=== PATIENT | female | born 1985 | race Caucasian/White ===

== ENCOUNTER 2017-04-25 05:39 | Emergency (ER) | payer BC ==
--- NOTE | 2017-04-25 06:21 | ERPHSYRPT ---
- History of Present Illness Historian: patient, family Exam Limitations: no limitations Patient Subjective Stated Complaint: Pt here with dry cough, sts abd and back hurting from cough, started having abd cramping yesterday. Pt is 6 weeks . Woke up this morning and had bright red bleeding that is now darker in nature. Reports as spotting - not needing to wear a pad. Reports abd discomfort at present, rates at 2/10. Describes as "stomach churning feeling". Pt is G4 P 1 Triage Nursing Assessment: Pt alert, oriented, answers all questions appropriately. Skin pink, warm, dry, resps non-labored. Pt ambulatory to tx room , steady gait noted. Dry cough noted. Timing/Duration: today Activities at Onset: other (coughing) Quality: aching, pressure Abdominal Pain Onset Location: other Pain Radiation: groin, back Severity of Pain-Max: moderate Severity of Pain-Current: moderate Modifying Factors: Improves With: coughing Associated Symptoms: back, nausea Previous symptoms: no prior history Hx Tetanus, Diphtheria Vaccination/Date Given: No Hx Influenza Vaccination/Date Given: No Hx Pneumococcal Vaccination/Date Given: No <ANAT SILVA - Last Filed: 04/25/17 07:04> <CLOVIS MONTALVO - Last Filed: 04/25/17 08:05> - History of Present Illness Time Seen by Provider: 04/25/17 06:16 Physician History: 32 year old with history of miscarriages and recently diagnosed with was coughing today and developed mild bleeding and pain - now tender midline pelvis and right adnexa with nausea; (ANAT SILVA) Allergies/Adverse Reactions: cocoa butter Allergy (Verified 04/25/17 05:53) codeine [Codeine] Allergy (Verified 04/25/17 05:53) penicillin G Allergy (Verified 04/25/17 05:53) red dye Allergy (Verified 04/25/17 05:53) strawberry [[place]] Allergy (Verified 04/25/17 05:53) cyclobenzaprine HCl [From Flexeril] Adverse Reaction (Severe, Verified 04/25/17 05:53) Home Medications: Vits W-Ca,Fe,FA(<1Mg) [] 1 each PO DAILY 04/25/17 [History] - Review of Systems Constitutional: No Fever, No Chills Eyes: No Symptoms Ears, Nose, & Throat: Nose Congestion Respiratory: Cough, No Dyspnea Cardiac: No Chest Pain, No Edema, No Syncope Abdominal/Gastrointestinal: Abdominal Pain, Nausea, No Vomiting, No Diarrhea Genitourinary Symptoms: , Vaginal Bleeding, No Dysuria Musculoskeletal: No Back Pain, No Neck Pain Skin: No Rash Neurological: No Dizziness, No Focal Weakness, No Sensory Changes Psychological: No Symptoms Endocrine: No Symptoms Hematologic/Lymphatic: No Symptoms Immunological/Allergic: No Symptoms All Other Systems: Reviewed and Negative <ANAT SILVA - Last Filed: 04/25/17 07:04> - Past Medical History Pertinent Past Medical History: Yes Neurological History: No Pertinent History ENT History: No Pertinent History Cardiac History: No Pertinent History Respiratory History: No Pertinent History Endocrine Medical History: No Pertinent History Musculoskeletal History: Other GI Medical History: No Pertinent History History: No Pertinent History Psycho-Social History: Depression Female Reproductive Disorders: No Pertinent History Other Medical History: LUMBAR SPINE, b12 defiency and anemia - Past Surgical History Past Surgical History: Yes Gastrointestinal: Cholecystectomy Musculoskeletal: Orthopedic Surgery, Other Female Surgical History: Section Other Surgical History: Back Surgery - Social History Smoking Status: Never smoker How long have you smoked: 5 Exposure to second hand smoke: No Drug Use: none Patient Lives Alone: No - Female History Hx Last Menstrual Period: 03/09/17 Hx Now: Yes Expected Date of Delivery: 12/14/17 <ANAT SILVA - Last Filed: 04/25/17 07:04> - Physical Exam General Appearance: no apparent distress, alert Eye Exam: PERRL/EOMI, eyes nml inspection Ears, Nose, Throat Exam: normal ENT inspection, pharynx normal, moist mucous membranes Neck Exam: normal inspection, non-tender, supple, full range of motion Respiratory Exam: normal breath sounds, lungs clear, No respiratory distress Cardiovascular Exam: regular rate/rhythm, normal heart sounds Gastrointestinal/Abdomen Exam: soft, tenderness (right adnexa and uterus), No mass Pelvic Exam: normal external exam, adnexal tenderness, vaginal bleeding, uterine tenderness, other (mild bleeding at cervical os without visible POC or dilation), No cervical motion tenderness, No vaginal discharge Rectal Exam: deferred Back Exam: normal inspection, normal range of motion, No CVA tenderness, No vertebral tenderness Extremity Exam: normal inspection, normal range of motion, pelvis stable Neurologic Exam: alert, oriented x 3, cooperative, normal mood/affect, nml cerebellar function, sensation nml, No motor deficits Skin Exam: normal color, warm, dry SpO2: 95 <ANAT SILVA - Last Filed: 04/25/17 07:04> - Nursing Vital Signs Nursing Vital Signs: Initial Vital Signs Temperature 98.1 F 04/25/17 05:47 Pulse Rate 97 H 04/25/17 05:47 Respiratory Rate 18 04/25/17 05:47 Blood Pressure 113/70 04/25/17 05:47 O2 Sat by Pulse Oximetry 95 04/25/17 05:47 Pain Scale Pain Intensity 0 - Course Nursing assessment & vital signs reviewed: Yes <ANAT SILVA - Last Filed: 04/25/17 07:04> - Radiology Ultrasound Exam OB Ultrasound: Other (discussed with geospatial technologist: interuterine 6 week 1 day heart rate 1 18 bpm) <CLOVIS MONTALVO - Last Filed: 04/25/17 08:05> Ordered Tests: Active Orders 24 hr Category Date Time Status Clean Catch Urine Specimen STAT Care 04/25/17 06:23 Active IV Insertion STAT Care 04/25/17 06:23 Active Pelvic Exam Assist STAT Care 04/25/17 06:23 Active OB TRANSVAGINAL [US] Stat Exams 04/25/17 06:26 Ordered CBC W DIFF Stat Lab 04/25/17 06:55 Completed CMP Stat Lab 04/25/17 06:55 Completed CULTURE, THROAT Stat Lab 04/25/17 06:55 Received CULTURE,URINE Stat Lab 04/25/17 06:55 Received HCG, Quantitative (Inhouse) Stat Lab 04/25/17 06:55 Completed LIPASE Stat Lab 04/25/17 06:55 Completed Lactic Acid Stat Lab 04/25/17 06:23 Completed STREP SCREEN-BETA A Stat Lab 04/25/17 06:55 Completed UA W/ MICROSCOPIC Stat Lab 04/25/17 06:55 Completed Medication Summary Discontinued Medications Generic Name Dose Route Start Last Admin Trade Name Freq PRN Reason Stop Dose Admin Sodium Chloride 1,000 mls @ 999 mls/hr 04/25/17 06:23 04/25/17 07:01 Sodium Chloride 0.9% 1000 Ml IV 04/25/17 07:23 999 mls/hr .Q1H1M STA Administration Sodium Chloride Confirm 04/25/17 07:00 Sodium Chloride 0.9% 1000 Ml Administered 04/25/17 07:01 Dose 1,000 mls @ ud .ROUTE .STK-MED ONE Lab/Rad Data: Laboratory Result Diagrams 04/25/17 06:55 04/25/17 06:55 Laboratory Results 04/25/17 04/25/17 04/25/17 Range/Units 06:55 06:55 06:55 WBC (4.0-10.5) K/mm3 RBC (4.1-5.4) M/mm3 Hgb (12.0-16.0) gm/dl Hct (35-47) % MCV (78-100) fl MCH (26-32) pg MCHC (32-36) g/dl RDW (11.5-14.0) % Plt Count (150-450) K/mm3 MPV (6-9.5) fl Gran % (36.0-66.0) % Lymphocytes % (24.0-44.0) % Monocytes % (0.0-12.0) % Eosinophils % (0.00-5.0) % Basophils % (0.0-0.4) % Basophils # (0-0.4) Sodium (136-145) mEq/L Potassium (3.5-5.1) mEq/L Chloride (98-107) mEq/L Carbon Dioxide (21-32) mEq/L Anion Gap (5-15) MEQ/L BUN (9-20) mg/dL Creatinine (0.55-1.30) mg/dl Estimated GFR ML/MIN Glucose (70-110) MG/DL Lactic Acid (0.4-2.0) Calcium (8.5-10.1) mg/dL Total Bilirubin (0.2-1.0) mg/dL AST (15-37) U/L ALT (12-78) U/L Alkaline Phosphatase (46-116) U/L Serum Total Protein (6.4-8.2) gm/dL Albumin (3.4-5.0) g/dL Lipase (73-393) U/L Beta HCG, Quant 06985 H (0-6) IU/L Ur Collection Type VOID Urine Color YELLOW (YELLOW) Urine Appearance CLEAR (CLEAR) Urine pH 6.0 (5-6) Ur Specific [place] 1.010 (1.005-1.025) Urine Protein TRACE (Negative) Urine Ketones NEGATIVE (NEGATIVE) Urine Blood 50 (0-5) Russ/ul Urine Nitrite NEGATIVE (NEGATIVE) Urine Bilirubin NEGATIVE (NEGATIVE) Urine Urobilinogen NORMAL (0-1) mg/dL Ur Leukocyte Esterase TRACE (NEGATIVE) Urine Microscopic RBC 0-2 (0-2) /HPF Urine Microscopic WBC 5-10 (0-5) /HPF Ur Epithelial Cells FEW (FEW) /HPF Urine Bacteria FEW (NEGATIVE) /HPF Urine Culture Reflexed YES (NO) Urine Glucose NEGATIVE (NEGATIVE) mg/dL Streptococcus Screen NEGATIVE (Negative) Specimen Received 04/25/17 0650 ABO Group Rh Factor Antibody Screen (NEGATIVE) 04/25/17 04/25/17 04/25/17 Range/Units 06:55 06:55 06:55 WBC 6.3 (4.0-10.5) K/mm3 RBC 4.35 (4.1-5.4) M/mm3 Hgb 13.4 (12.0-16.0) gm/dl Hct 40.0 (35-47) % MCV 92.0 (78-100) fl MCH 30.8 (26-32) pg MCHC 33.5 (32-36) g/dl RDW 12.9 (11.5-14.0) % Plt Count 290 (150-450) K/mm3 MPV 9.7 H (6-9.5) fl Gran % 54.8 (36.0-66.0) % Lymphocytes % 28.4 (24.0-44.0) % Monocytes % 14.6 H (0.0-12.0) % Eosinophils % 1.9 (0.00-5.0) % Basophils % 0.3 (0.0-0.4) % Basophils # 0.02 (0-0.4) Sodium 136 (136-145) mEq/L Potassium 3.5 (3.5-5.1) mEq/L Chloride 102 (98-107) mEq/L Carbon Dioxide 23.6 (21-32) mEq/L Anion Gap 13.8 (5-15) MEQ/L BUN 4 L (9-20) mg/dL Creatinine 0.83 (0.55-1.30) mg/dl Estimated GFR > 60 ML/MIN Glucose 89 (70-110) MG/DL Lactic Acid (0.4-2.0) Calcium 8.9 (8.5-10.1) mg/dL Total Bilirubin 0.30 (0.2-1.0) mg/dL AST 23 (15-37) U/L ALT 26 (12-78) U/L Alkaline Phosphatase 57 (46-116) U/L Serum Total Protein 7.3 (6.4-8.2) gm/dL Albumin 3.4 (3.4-5.0) g/dL Lipase 86 (73-393) U/L Beta HCG, Quant (0-6) IU/L Ur Collection Type Urine Color (YELLOW) Urine Appearance (CLEAR) Urine pH (5-6) Ur Specific [place] (1.005-1.025) Urine Protein (Negative) Urine Ketones (NEGATIVE) Urine Blood (0-5) Russ/ul Urine Nitrite (NEGATIVE) Urine Bilirubin (NEGATIVE) Urine Urobilinogen (0-1) mg/dL Ur Leukocyte Esterase (NEGATIVE) Urine Microscopic RBC (0-2) /HPF Urine Microscopic WBC (0-5) /HPF Ur Epithelial Cells (FEW) /HPF Urine Bacteria (NEGATIVE) /HPF Urine Culture Reflexed (NO) Urine Glucose (NEGATIVE) mg/dL Streptococcus Screen (Negative) Specimen Received ABO Group A Rh Factor POSITIVE Antibody Screen NEGATIVE (NEGATIVE) 04/25/17 Range/Units 06:23 WBC (4.0-10.5) K/mm3 RBC (4.1-5.4) M/mm3 Hgb (12.0-16.0) gm/dl Hct (35-47) % MCV (78-100) fl MCH (26-32) pg MCHC (32-36) g/dl RDW (11.5-14.0) % Plt Count (150-450) K/mm3 MPV (6-9.5) fl Gran % (36.0-66.0) % Lymphocytes % (24.0-44.0) % Monocytes % (0.0-12.0) % Eosinophils % (0.00-5.0) % Basophils % (0.0-0.4) % Basophils # (0-0.4) Sodium (136-145) mEq/L Potassium (3.5-5.1) mEq/L Chloride (98-107) mEq/L Carbon Dioxide (21-32) mEq/L Anion Gap (5-15) MEQ/L BUN (9-20) mg/dL Creatinine (0.55-1.30) mg/dl Estimated GFR ML/MIN Glucose (70-110) MG/DL Lactic Acid 0.9 (0.4-2.0) Calcium (8.5-10.1) mg/dL Total Bilirubin (0.2-1.0) mg/dL AST (15-37) U/L ALT (12-78) U/L Alkaline Phosphatase (46-116) U/L Serum Total Protein (6.4-8.2) gm/dL Albumin (3.4-5.0) g/dL Lipase (73-393) U/L Beta HCG, Quant (0-6) IU/L Ur Collection Type Urine Color (YELLOW) Urine Appearance (CLEAR) Urine pH (5-6) Ur Specific [place] (1.005-1.025) Urine Protein (Negative) Urine Ketones (NEGATIVE) Urine Blood (0-5) Russ/ul Urine Nitrite (NEGATIVE) Urine Bilirubin (NEGATIVE) Urine Urobilinogen (0-1) mg/dL Ur Leukocyte Esterase (NEGATIVE) Urine Microscopic RBC (0-2) /HPF Urine Microscopic WBC (0-5) /HPF Ur Epithelial Cells (FEW) /HPF Urine Bacteria (NEGATIVE) /HPF Urine Culture Reflexed (NO) Urine Glucose (NEGATIVE) mg/dL Streptococcus Screen (Negative) Specimen Received ABO Group Rh Factor Antibody Screen (NEGATIVE) - Progress Progress: improved, re-examined Counseled pt/family regarding: lab results, diagnosis, need for follow-up, rad results <ANAT SILVA - Last Filed: 04/25/17 07:04> - Progress Progress: improved <CLOVIS MONTALVO - Last Filed: 04/25/17 08:05> - Progress Progress Note: 04/25/17 06:44 pt handed off to Dr[address] Montalvo at change of shift after introduction, discussion of pending labs, imaging , differential, for final interpretation and disposition. (ANAT SILVA) 04/25/17 07:58 32-year-old white female 4 para 1021 Who states that she is 6 weeks , woke up this morning with bright red bleeding from her vaginal area She states that she has had a cough nonproductive for 2 days some nausea. Patient initially seen by Dr. Silva patient given IV normal saline patient has a ultrasound which is a remarkable for intrauterine 6 weeks 1 day heart rate 118 no other abnormalities patient's quantitative hCG 26,683 patient' s blood type a positive urine shows 5-10 white cells but negative nitrites chemistry is normal lactate is normal CBC shows a white count 6.3 hemoglobin 13.4 hematocrit 40 Patient currently with no low complaints she has an occasional cough no fevers Physical examination well-developed well-nourished white female alert oriented 3. Head is atraumatic normocephalic. Eyes PERRLA EOMI fundi are unremarkable. Ears TMs sage intact bilaterally. Nose is clear. Throat is clear. Neck is supple. Lungs are clear. Heart regular rate and rhythm without murmur. Abdomen soft nontender nondistended positive bowel sounds. Extremities full range of motion pulse equal symmetrical 2 over 4. Neuro cranial nerves II through XII are intact each are symmetrical 2 over 4 Beemer Coma Scale 15. Pelvic examination done by Dr. Silva. Impression vaginal bleeding. Intrauterine 6 weeks 1 day estimated gestational age. URI. Plan home. Plenty of fluids. Tylenol as needed for pain. Plain Robitussin as needed (OTC) consult pharmacist for safe cough medicines for . Follow-up with your family doctor. Nothing in vagina. (CLOVIS MONTALVO) <ANAT SILVA - Last Filed: 04/25/17 07:04> - Departure Time of Disposition: 08:03 Departure Disposition: Home Critical Care Time: No <CLOVIS MONTALVO - Last Filed: 04/25/17 08:05> - Departure Clinical Impression: Vaginal bleeding affecting early , Intrauterine URI (upper respiratory infection) Qualifiers: URI type: unspecified URI Qualified Code(s): J06.9 - Acute upper respiratory infection, unspecified Condition: Fair Referrals: SILVINA NEGRON MD [Primary Care Provider] - Additional Instructions: Return home. Plenty of fluids. Tylenol every 4 hours as needed for pain. Plain Robitussin as needed (consult pharmacist for safe cough remedies during ) Nothing in your vagina Follow-up with your family doctor or [facility] physician. Return for acute distress or for severe symptoms.
[2017-04-25] MEDS ORDERED: Sodium Chloride 0.9% 1000 ML 1,000 ML IV STA (06:23)
[2017-04-25 06:55] LABS: BASOPHIL % 0.3 % (0.0-0.4); Eosinophil % 1.9 % (0.00-5.0); Granulocytes % 54.8 % (36.0-66.0); Lymphocytes % 28.4 % (24.0-44.0); Mean Corpuscular Hemoglobin 30.8 pg (26-32); Mean Platelet Volume 9.7 fl (6-9.5); Monocytes % 14.6 % (0.0-12.0); Platelet Count 290 K/mm3 (150-450); Red Blood Count 4.35 M/mm3 (4.1-5.4); Red Cell Distribution Width 12.9 % (11.5-14.0); White Blood Count 6.3 K/mm3 (4.0-10.5)
[2017-04-25 06:59] VITALS: PULSE 78
[2017-04-25] MEDS ORDERED: Sodium Chloride 0.9% 1000 ML 1,000 ML ONE (07:00)
[2017-04-25 07:18] LABS: Collection Type VOID
[2017-04-25 07:19] LABS: ADD URINE CULTURE? YES (NO); Bacteria FEW /HPF (NEGATIVE); Bilirubin NEGATIVE (NEGATIVE); Blood 50 Ery/ul (0-5); COMPLETE URINE MICROSCOPIC? YES; Epithelial Cells FEW /HPF (FEW); Glucose NEGATIVE (NEGATIVE); Leukocyte Esterase TRACE (NEGATIVE)
[2017-04-25 07:22] LABS: ALBUMIN 3.4 g/dL (3.4-5.0); ALKALINE PHOSPHATASE 57 U/L (46-116); ANION GAP 13.8 MEQ/L (5-15); BLOOD UREA NITROGEN 4 mg/dL (9-20); CHLORIDE 102 mEq/L (98-107); Carbon Dioxide 23.6 mEq/L (21-32); Glucose 89 MG/DL (70-110); LIPASE 86 U/L (73-393); Potassium 3.5 mEq/L (3.5-5.1); SGOT/AST 23 U/L (15-37); SGPT/ALT 26 U/L (12-78); SODIUM 136 mEq/L (136-145); Total Protein 7.3 gm/dL (6.4-8.2)
[2017-04-25 08:19] VITALS: BP 108/72; O2SAT 98
--- NOTE | 2017-04-25 08:33 | XRAY ---
Indication: Spotting. Two-dimensional transvaginal early OB ultrasound performed. Comparison: None for this . Uterus is anteverted with a single intrauterine gestational sac, yolk sac, and pole. The mean crown-rump length measures 0.41 cm corresponding to 6 weeks 1 day. heart rate 118 BPM. No abnormal subchorionic fluid collection. Left ovary measures 3.0 x 2.5 x 4.2 cm with a 1.5 cm corpus luteal cyst. Right ovary measures 2.6 x 2.6 x 3.1 cm and unremarkable. No suspicious adnexal mass or free fluid. Impression: Single viable intrauterine uterine measuring 6 weeks 1 day. Expected date confinement is December 18, 2017. Nothing acute. Comment: Preliminary report was given.
== END 2017-04-25 08:22 | disposition home or self-care (01) ==
LOC: ED 05:39
DX: O20.9 Hemorrhage in early pregnancy, unspecified (principal); Z3A.01 Less than 8 weeks gestation of pregnancy; J06.9 Acute upper respiratory infection, unspecified
CPT/HCPCS: 36000; 36415; 76817; 80053; 81000; 83605; 83690; 84702; 85025; 86850; 86900; 86901; 87070; 87086; 87430; 87631; 96360; 99284

== ENCOUNTER 2017-10-13 17:40 | Observation (INO) | payer BC, MEDICAID ==
[2017-10-13] MEDS ORDERED: Lactated Ringers 1,000 ML IV ONE ×2 (18:17→20:09)
[2017-10-13] MEDS ORDERED: BRETHINE 1 MG/ML SQ ONE (18:17)
[2017-10-13 18:56] VITALS: O2SAT 94
[2017-10-13 19:07] LABS: Appearance CLEAR (CLEAR); Bilirubin NEGATIVE (NEGATIVE); Blood NEGATIVE Ery/ul (0-5); Glucose NEGATIVE (NEGATIVE); Ketones NEGATIVE (NEGATIVE); Leukocyte Esterase NEGATIVE (NEGATIVE); Nitrite NEGATIVE (NEGATIVE); Protein,Urine Dip NEGATIVE (Negative); Specific Gravity 1.015 (1.005-1.025); Urobilinogen NORMAL mg/dL (0-1)
[2017-10-13] MEDS ORDERED: PROCARDIA 10 MG PO ONE (20:09)
[2017-10-13] MEDS ORDERED: Celestone Soluspan 6MG/ML IM ONE (22:14)
[2017-10-13] MEDS: Lactated Ringers 1,000 ML IV SCH (22:23)
[2017-10-13] MEDS: PROCARDIA 10 MG PO SCH (23:59)
[2017-10-14] MEDS: PROCARDIA 10 MG PO SCH ×3 (04:07→12:42)
[2017-10-14] MEDS: Lactated Ringers 1,000 ML IV SCH (05:01)
--- NOTE | 2017-10-14 09:13 | PCM.SSS ---
History of Present Illness - Chief Complaint History of Present Illness: is a 32 year old female 31+ weeks EGA with history of previous delivery at 31 weeks. she arrived complaining of contractions, she has improved with terbutaline and po procardia, still having some occaisonal ctx but improved and no pain. having severe GERD symptoms with vomiting. - Review of Systems Constitutional: No Fever, No Chills Respiratory: No Symptoms Cardiac: No Chest Pain, No Edema, No Syncope Abdominal/Gastrointestinal: Nausea, Vomiting Genitourinary Symptoms: No Dysuria Skin: No Rash All Other Systems: Reviewed and Negative Medications & Allergies Home Medications: Home Medication List Vits W-Ca,Fe,FA(<1Mg) [] 1 each PO DAILY 04/25/17 [History Confirmed 10/13/17] Nifedipine 10 mg [Procardia 10 mg] 10 mg PO Q4H #120 capsule 10/14/17 [Rx] Ranitidine HCl [Zantac] 150 mg PO BID #60 tablet 10/14/17 [Rx] Allergies/Adverse Reactions: Allergies Allergy/AdvReac Type Severity Reaction Status Date / Time cocoa butter Allergy Verified 04/25/17 05:53 codeine [Codeine] Allergy Verified 04/25/17 05:53 penicillin G Allergy Verified 04/25/17 05:53 red dye Allergy Verified 04/25/17 05:53 strawberry [[place]] Allergy Verified 10/13/17 19:49 cyclobenzaprine HCl AdvReac Severe Verified 04/25/17 05:53 [From Flexeril] - Past Medical History Past Medical History: Yes Neurological History: No Pertinent History ENT History: No Pertinent History Cardiac History: No Pertinent History Respiratory History: No Pertinent History Endocrine Medical History: No Pertinent History Musculoskelatal History: Other GI Medical History: No Pertinent History History: No Pertinent History Pyscho-Social History: Depression Reproductive Disorders: No Pertinent History Comment: LUMBAR SPINE, b12 defiency and anemia - Female History Expected Date of Delivery: 12/14/17 - Past Surgical History Past Surgical History: Yes GI Surgical History: Cholecystectomy Musculskeletal Surgical Hx: Orthopedic Surgery, Other Female Surgical History: Section Other Surgical History: Back Surgery - Social History Smoking Status: Former smoker How long have you smoked: 5 Exposure to second hand smoke: No Alcohol: None Drug Use: none - Physical Exam Vital Signs: Vital Signs - 24 hr Temp Pulse Resp BP Pulse Ox 10/14/17 05:00 98.0 F 82 18 118/68 10/13/17 22:55 98.6 F 90 18 120/72 10/13/17 22:00 18 10/13/17 19:35 18 10/13/17 18:30 98.8 F 96 H 18 120/77 94 L General Appearance: no apparent distress, alert Eye Exam: PERRL/EOMI, eyes nml inspection Respiratory Exam: normal breath sounds, lungs clear, No respiratory distress Cardiovascular Exam: regular rate/rhythm, normal heart sounds, normal peripheral pulses Gastrointestinal/Abdomen Exam: soft, normal bowel sounds, No tenderness, No mass Extremity Exam: normal inspection, normal range of motion, pelvis stable Skin Exam: normal color, warm, dry, No rash Results - Labs Lab/Micro Results: Lab Results-Last 24 Hours 10/13/17 Range/Units 18:19 Ur Collection Type VOID Urine Color YELLOW (YELLOW) Urine Appearance CLEAR (CLEAR) Urine pH 7.0 (5-6) Ur Specific [place] 1.015 (1.005-1.025) Urine Protein NEGATIVE (Negative) Urine Ketones NEGATIVE (NEGATIVE) Urine Blood NEGATIVE (0-5) Russ/ul Urine Nitrite NEGATIVE (NEGATIVE) Urine Bilirubin NEGATIVE (NEGATIVE) Urine Urobilinogen NORMAL (0-1) mg/dL Ur Leukocyte Esterase NEGATIVE (NEGATIVE) Urine Glucose NEGATIVE (NEGATIVE) mg/dL Specimen Received 10/13/17 1840 - Radiology Impressions Radiology Exams & Impressions: Radiology Procedures Category Date Time Status OB >14 WKS 1st GESTATION [US] Stat Exams 10/14/17 Ordered Assessment/Plan (1) contractions Current Visit: Yes Status: Acute Assessment & Plan: improved on po procardia, will get u/s for cervical length Code(s): O47.9 - FALSE LABOR, UNSPECIFIED (2) GERD (gastroesophageal reflux disease) Current Visit: Yes Status: Acute Assessment & Plan: start zantac Code(s): K21.9 - GASTRO-ESOPHAGEAL REFLUX DISEASE WITHOUT ESOPHAGITIS (3) History of delivery Current Visit: Yes Status: Acute Code(s): Z87.51 - PERSONAL HISTORY OF PRE- TERM LABOR Hospital Summary - Vitals & Intake/Output Vital Signs: Vital Signs Temperature 98.0 F 05/31/18 05:00 Pulse Rate 82 10/14/17 05:00 Respiratory Rate 18 10/14/17 05:00 Blood Pressure 118/68 10/14/17 05:00 O2 Sat by Pulse Oximetry 94 L 10/13/17 18:30 Intake & Output: Intake & Output 10/11/17 10/12/17 10/13/17 10/14/17 11:59 11:59 11:59 11:59 Intake Total 4325 Balance 4325 Weight 126.099 kg - Lab Lab Results-Last 24 Hrs: Lab Results-Last 24 Hours 10/13/17 Range/Units 18:19 Ur Collection Type VOID Urine Color YELLOW (YELLOW) Urine Appearance CLEAR (CLEAR) Urine pH 7.0 (5-6) Ur Specific [place] 1.015 (1.005-1.025) Urine Protein NEGATIVE (Negative) Urine Ketones NEGATIVE (NEGATIVE) Urine Blood NEGATIVE (0-5) Russ/ul Urine Nitrite NEGATIVE (NEGATIVE) Urine Bilirubin NEGATIVE (NEGATIVE) Urine Urobilinogen NORMAL (0-1) mg/dL Ur Leukocyte Esterase NEGATIVE (NEGATIVE) Urine Glucose NEGATIVE (NEGATIVE) mg/dL Specimen Received 10/13/17 1840 - Radiology Exams Ordered Rad Exams-Entire Visit: Radiology Procedures Category Date Time Status OB >14 WKS 1st GESTATION [US] Stat Exams 10/14/17 Ordered - Discharge Disposition: Home, Self-Care Condition: Stable Prescriptions: New Nifedipine 10 mg [Procardia 10 mg] 10 mg PO Q4H #120 capsule Ranitidine HCl [Zantac] 150 mg PO BID #60 tablet Continue Vits W-Ca,Fe,FA(<1Mg) [] 1 each PO DAILY Follow up with: SILVINA NEGRON MD [Primary Care Provider] - 1 Week
[2017-10-14] MEDS ORDERED: Pepcid 20 MG PO SCH (10:00)
--- NOTE | 2017-10-14 11:26 | XRAY ---
Exam: OB ultrasound greater than 14 weeks from 10/14/2017. Comparison: OB ultrasound greater than 14 weeks from 07/28/2017. Indication: labor. Findings: A single live intrauterine fetus is seen in the cephalic lie. body motion was seen by the technologist. The heart rate measured 132 bpm. The placenta is anterior and grade one. There is no evidence of placenta previa or abruption. A normal amount of amniotic fluid is seen with an amniotic fluid index of 13.2 cm. The cervical canal length is 2.2 cm which is mildly decreased. I see no fluid within the cervical canal or upper vagina. The cervical canal measured 3.9 cm on the prior exam. Measurements of the biparietal diameter, head circumference, abdominal circumference, and femur length suggest a composite gestational age of 31 weeks 6 days plus or -2 weeks 2 days, which represents satisfactory intrauterine growth since the prior exam from 07/28/2017. Established due date is 12/12/2017. Estimated weight is 1852 g plus or -277.82 g (4 lbs. 1 oz.+ or -10 ounces) placing the fetus in the 47.8 percentile. All size measurement ratios are within normal limits. I see a four-chamber heart, stomach, diaphragm, kidneys, three-vessel umbilical cord, urinary bladder, lips/nose, and spine. No gross abnormality is seen. Impression: 1. 31 weeks 6 days single live intrauterine fetus in the cephalic lie which demonstrates satisfactory interval growth since the prior OB ultrasound exam from 07/28/2017. 2. The placenta is anterior. There is no evidence of placenta previa or abruption. 3. The amount of amniotic fluid appears within normal limits with an amniotic fluid index of 13.2 cm. 4. However, the maternal cervical canal length is mildly decreased at 2.2 cm. I see no abnormal fluid within the maternal cervical canal or upper vagina. Correlate clinically. Maternal cervical canal length on the prior exam was normal at 3.9 cm.
[2017-10-14 11:51] VITALS: PULSE 84
[2017-10-14 14:12] VITALS: BP 115/66
== END 2017-10-14 13:35 | disposition home or self-care (01) ==
LOC: OB 17:40
PROVIDERS: ADMIT Family Medicine; ATTEND Family Medicine
DX: O47.03 False labor before 37 completed weeks of gestation, third trimester (principal); Z87.51 Personal history of pre-term labor
CPT/HCPCS: 76805; 81002; G0378; 96372; J0702; A9270-GY

== ENCOUNTER 2017-10-27 15:46 | Observation (INO) | payer BC, MEDICAID ==
[2013-01-18 01:29] VITALS: BP 143/87
[2017-10-27] MEDS ORDERED: Lactated Ringers 1,000 ML IV ONE ×2 (16:45→19:33)
[2017-10-27] MEDS ORDERED: PROCARDIA 10 MG PO SCH ×2 (16:45→20:45)
[2017-10-27] MEDS ORDERED: BRETHINE 1 MG/ML ONE (19:32)
[2017-10-27] MEDS ORDERED: BRETHINE 1 MG/ML SQ PRN (19:36)
[2017-10-27] MEDS ORDERED: Lactated Ringers 1,000 ML IV SCH (20:00)
[2017-10-27] MEDS ORDERED: PROCARDIA 10 MG ONE (20:34)
[2017-10-28 10:07] VITALS: BP 147/66; PULSE 111
== END 2017-10-27 23:55 | disposition home or self-care (01) ==
LOC: OB 15:46 → UNDOADMOB 15:46 → UNDODISOB 23:55
PROVIDERS: ADMIT Family Medicine; ATTEND Family Medicine
DX: Z34.83 Encounter for supervision of other normal pregnancy, third trimester (principal)
CPT/HCPCS: G0378 ×2; A9270-GY

== ENCOUNTER 2017-11-02 12:52 | Inpatient (IN) | payer BC, MEDICAID ==
[~2017-11-02 12:52] MED LIST: BRIDION 200MG/2ML IV ONE; DIPRIVAN 200 MG/20 ML IV ONE; Decadron 4 MG INJ IV ONE; Naropin 0.5% 30 ML VIAL IJ ONE; Quelicin Fliptop 200 MG/10 ML IV ONE; Zemuron 100 MG/10 ML IV ONE; Zofran 4 MG/2 ML VIAL IV ONE
[2017-11-02] MEDS ORDERED: Lactated Ringers 1,000 ML IV ONE ×4 (12:59→14:24)
[2017-11-02] MEDS ORDERED: Pepcid 20 MG VIAL IV ONE (13:08)
[2017-11-02] MEDS ORDERED: BICITRA 30 ML CUP ONE (13:08)
[2017-11-02] MEDS ORDERED: Reglan 10 MG/2 ML ONE ×2 (13:09→13:10)
[2017-11-02] MEDS ORDERED: Pepcid 20 MG VIAL IV SCH (13:15)
[2017-11-02] MEDS ORDERED: BICITRA 30 ML CUP PO SCH (13:15)
[2017-11-02] MEDS ORDERED: Reglan 10 MG/2 ML IV SCH (13:15)
[2017-11-02 13:24] LABS: INR 1.04 (0.8-3.0)
[2017-11-02 13:25] LABS: Hematocrit 37.2 % (35-47); Hemoglobin 12.8 gm/dl (12.0-16.0); Mean Cell Volume 86.7 fl (78-100); Mean Corpuscular Hemoglobin 29.8 pg (26-32); Mean Corpuscular Hgb Concent. 34.4 g/dl (32-36); Mean Platelet Volume 10.6 fl (6-9.5); Platelet Count 321 K/mm3 (150-450); Red Blood Count 4.29 M/mm3 (4.1-5.4); Red Cell Distribution Width 13.2 % (11.5-14.0); White Blood Count 10.4 K/mm3 (4.0-10.5)
[2017-11-02 13:27] LABS: PTT 29.2 SECONDS (25.3-37.0)
[2017-11-02] MEDS ORDERED: CLINDAMYCIN-D5W 900 MG/50 ML*** 900 MG/50 ML BAG IV SCH (13:30)
[2017-11-02] MEDS ORDERED: Lactated Ringers 1,000 ML IV SCH (13:30)
[2017-11-02 13:38] LABS: ABO TYPING A; Antibody Screen NEGATIVE (NEGATIVE); RH TYPING POSITIVE
[2017-11-02] MEDS ORDERED: Ambien 10 MG PO PRN (14:02)
[2017-11-02] MEDS ORDERED: Anucort-HC SUPPOSITORY PR PRN (14:02)
[2017-11-02] MEDS ORDERED: LANSINOH 40 GM TOP PRN (14:02)
[2017-11-02] MEDS ORDERED: Adacel Vial IM ONE (14:02)
[2017-11-02] MEDS ORDERED: TYLENOL EXTRA STRENGTH 500 MG PO PRN (14:02)
[2017-11-02] MEDS ORDERED: TUCKS TP PRN (14:02)
[2017-11-02] MEDS ORDERED: CORTISONE 1% CREAM TP PRN (14:02)
[2017-11-02] MEDS ORDERED: Phenergan 25 MG INJ IM PRN (14:02)
[2017-11-02] MEDS ORDERED: Dulcolax 10 MG SUPP PR PRN (14:02)
[2017-11-02] MEDS ORDERED: Mylicon 80MG PO PRN (14:02)
[2017-11-02] MEDS ORDERED: M-M-R II Vaccine With Diluent SQ ONE (14:02)
[2017-11-02] MEDS ORDERED: Dermoplast Spray TP PRN (14:02)
[2017-11-02] MEDS ORDERED: NORCO 5/325 MG PO PRN (14:02)
[2017-11-02] MEDS ORDERED: DEMEROL 75 MG IM PRN (14:02)
[2017-11-02] MEDS ORDERED: DEMEROL 50 MG ONE (14:28)
[2017-11-02] MEDS ORDERED: Dextrose 5%-Lr IV Solution 1000 ML 1,000 ML IV SCH (14:30)
[2017-11-02 15:38] LABS: Appearance CLOUDY (CLEAR); Bilirubin SMALL (NEGATIVE); Blood 50 Ery/ul (0-5); Glucose TRACE mg/dL (NEGATIVE); Ketones TRACE (NEGATIVE); Leukocyte Esterase TRACE (NEGATIVE); Nitrite NEGATIVE (NEGATIVE); Protein,Urine Dip TRACE (Negative); Specific Gravity 1.025 (1.005-1.025); Urobilinogen 4 mg/dL (0-1)
[2017-11-02] MEDS: MOTRIN 400 MG PO PRN (16:58)
[2017-11-02] MEDS: Colace 100 MG PO SCH ×2 (21:02→22:41)
[2017-11-02 21:57] LABS: Amphetamine,Urine NEGATIVE (NEGATIVE); Barbiturate,Urine NEGATIVE (NEGATIVE); Benzodiazepine,Urine NEGATIVE (NEGATIVE); Cocaine,Urine NEGATIVE (NEGATIVE); Methadone,Urine NEGATIVE (NEGATIVE); Opiate,Urine NEGATIVE (NEGATIVE); PCP,Urine NEGATIVE (NEGATIVE); THC,Urine NEGATIVE (NEGATIVE)
[2017-11-02 22:03] LABS: Appearance CLEAR (CLEAR); Bilirubin NEGATIVE (NEGATIVE); Blood 250 Ery/ul (0-5); Glucose 50 mg/dL (NEGATIVE); Ketones MODERATE (NEGATIVE); Leukocyte Esterase NEGATIVE (NEGATIVE); Nitrite NEGATIVE (NEGATIVE); Protein,Urine Dip TRACE (Negative); Urobilinogen NORMAL mg/dL (0-1)
[2017-11-02 22:04] LABS: Bacteria MODERATE /HPF (NEGATIVE); Epithelial Cells MODERATE /HPF (FEW); Mucus MODERATE /HPF (NEGATIVE)
[2017-11-03] MEDS: MOTRIN 400 MG PO PRN ×2 (01:38→10:15)
[2017-11-03 05:58] LABS: Granulocyte Absolute (ANC) 11.22 (1.4-6.9); Hematocrit 32.5 % (35-47); Hemoglobin 10.9 gm/dl (12.0-16.0); Mean Cell Volume 88.8 fl (78-100); Mean Corpuscular Hgb Concent. 33.5 g/dl (32-36); Mean Platelet Volume 10.5 fl (6-9.5); Platelet Count 301 K/mm3 (150-450); Red Blood Count 3.66 M/mm3 (4.1-5.4); Red Cell Distribution Width 13.3 % (11.5-14.0); White Blood Count 15.5 K/mm3 (4.0-10.5)
[2017-11-03 06:05] LABS: Mean Corpuscular Hemoglobin 29.7 pg (26-32)
--- NOTE | 2017-11-03 07:26 | PCM.DS ---
Discharge Summary Date of Admission: 11/02/17 12:52 Admitting Physician: SILVINA NEGRON Consults: Consults on Case 11/02/17 13:12 Notify Anesthesia Provider ROUTINE Notify Physician OF ADMISSION 11/02/17 14:08 Notify Physician ROUTINE Primary Care Provider: SILVINA NEGRON Allergies Allergies cocoa butter Allergy (Verified 04/25/17 05:53) codeine [Codeine] Allergy (Verified 04/25/17 05:53) penicillin G Allergy (Verified 04/25/17 05:53) red dye Allergy (Verified 04/25/17 05:53) strawberry [Inola] Allergy (Verified 10/13/17 19:49) strawberry flavoring cyclobenzaprine HCl [From Flexeril] Adverse Reaction (Severe, Verified 04/25/17 05:53) Hospital Summary - Hospital Course Hospital Course: patient had repeat c/s at 34 weeks on 11/02 due to spontaneous rupture of membranes and active labor on arrival. she is doing great , bleeding is mild and pain well controlled on tylenol and ibuprofen. tolerating po and ambulating well - Vitals & Intake/Output Vital Signs: Vital Signs Temperature 98.7 F 11/03/17 01:47 Pulse Rate 69 11/03/17 01:47 Respiratory Rate 16 11/03/17 01:47 Blood Pressure 140/76 11/03/17 01:47 O2 Sat by Pulse Oximetry Intake & Output: Intake & Output 10/31/17 11/01/17 11/02/17 11/03/17 11:59 11:59 11:59 11:59 Intake Total 4324 Output Total 900 Balance 3424 Weight 128.82 kg - Lab Result Diagrams: 11/03/17 05:50 Lab Results-Last 24 Hrs: Lab Results-Last 24 Hours 11/02/17 11/02/17 11/02/17 Range/Units 12:57 12:57 13:12 WBC 10.4 (4.0-10.5) K/mm3 RBC 4.29 (4.1-5.4) M/mm3 Hgb 12.8 (12.0-16.0) gm/dl Hct 37.2 (35-47) % MCV 86.7 (78-100) fl MCH 29.8 (26-32) pg MCHC 34.4 (32-36) g/dl RDW 13.2 (11.5-14.0) % Plt Count 321 (150-450) K/mm3 MPV 10.6 H (6-9.5) fl Absolute Granulocytes (1.4-6.9) PT 12.1 (9.95-12.35) SECONDS INR 1.04 (0.8-3.0) APTT 29.2 (25.3-37.0) SECONDS Ur Collection Type Urine Color (YELLOW) Urine Appearance (CLEAR) Urine pH (5-6) Ur Specific Buchanan (1.005-1.025) Urine Protein (Negative) Urine Ketones (NEGATIVE) Urine Blood (0-5) Russ/ul Urine Nitrite (NEGATIVE) Urine Bilirubin (NEGATIVE) Urine Urobilinogen (0-1) mg/dL Ur Leukocyte Esterase (NEGATIVE) Urine Microscopic RBC (0-2) /HPF Urine Microscopic WBC (0-5) /HPF Ur Epithelial Cells (FEW) /HPF Urine Bacteria (NEGATIVE) /HPF Urine Mucus (NEGATIVE) /HPF Urine Glucose (NEGATIVE) mg/dL Urine Opiates Level (NEGATIVE) Ur Methadone (NEGATIVE) Urine Barbiturates (NEGATIVE) Ur Phencyclidine (PCP) (NEGATIVE) Urine Amphetamine (NEGATIVE) U Benzodiazepine Level (NEGATIVE) Urine Cocaine (NEGATIVE) Urine Marijuana (THC) (NEGATIVE) Specimen Received ABO Group A Rh Factor POSITIVE Antibody Screen NEGATIVE (NEGATIVE) 11/02/17 11/02/17 11/02/17 Range/Units 13:29 21:37 21:37 WBC (4.0-10.5) K/mm3 RBC (4.1-5.4) M/mm3 Hgb (12.0-16.0) gm/dl Hct (35-47) % MCV (78-100) fl MCH (26-32) pg MCHC (32-36) g/dl RDW (11.5-14.0) % Plt Count (150-450) K/mm3 MPV (6-9.5) fl Absolute Granulocytes (1.4-6.9) PT (9.95-12.35) SECONDS INR (0.8-3.0) APTT (25.3-37.0) SECONDS Ur Collection Type CATH VOID Urine Color YELLOW YELLOW (YELLOW) Urine Appearance CLOUDY CLEAR (CLEAR) Urine pH 5.0 6.0 (5-6) Ur Specific Buchanan 1.025 1.020 (1.005-1.025) Urine Protein TRACE TRACE (Negative) Urine Ketones TRACE MODERATE (NEGATIVE) Urine Blood 50 250 (0-5) Russ/ul Urine Nitrite NEGATIVE NEGATIVE (NEGATIVE) Urine Bilirubin SMALL NEGATIVE (NEGATIVE) Urine Urobilinogen 4 NORMAL (0-1) mg/dL Ur Leukocyte Esterase TRACE NEGATIVE (NEGATIVE) Urine Microscopic RBC 5-10 (0-2) /HPF Urine Microscopic WBC 5-10 (0-5) /HPF Ur Epithelial Cells MODERATE (FEW) /HPF Urine Bacteria MODERATE (NEGATIVE) /HPF Urine Mucus MODERATE (NEGATIVE) /HPF Urine Glucose TRACE 50 (NEGATIVE) mg/dL Urine Opiates Level NEGATIVE (NEGATIVE) Ur Methadone NEGATIVE (NEGATIVE) Urine Barbiturates NEGATIVE (NEGATIVE) Ur Phencyclidine (PCP) NEGATIVE (NEGATIVE) Urine Amphetamine NEGATIVE (NEGATIVE) U Benzodiazepine Level NEGATIVE (NEGATIVE) Urine Cocaine NEGATIVE (NEGATIVE) Urine Marijuana (THC) NEGATIVE (NEGATIVE) Specimen Received 11/02/17 1320 11/02/17 2130 ABO Group Rh Factor Antibody Screen (NEGATIVE) 11/03/17 Range/Units 05:50 WBC 15.5 H (4.0-10.5) K/mm3 RBC 3.66 L (4.1-5.4) M/mm3 Hgb 10.9 L (12.0-16.0) gm/dl Hct 32.5 L (35-47) % MCV 88.8 (78-100) fl MCH 29.7 (26-32) pg MCHC 33.5 (32-36) g/dl RDW 13.3 (11.5-14.0) % Plt Count 301 (150-450) K/mm3 MPV 10.5 H (6-9.5) fl Absolute Granulocytes 11.22 H (1.4-6.9) PT (9.95-12.35) SECONDS INR (0.8-3.0) APTT (25.3-37.0) SECONDS Ur Collection Type Urine Color (YELLOW) Urine Appearance (CLEAR) Urine pH (5-6) Ur Specific Buchanan (1.005-1.025) Urine Protein (Negative) Urine Ketones (NEGATIVE) Urine Blood (0-5) Russ/ul Urine Nitrite (NEGATIVE) Urine Bilirubin (NEGATIVE) Urine Urobilinogen (0-1) mg/dL Ur Leukocyte Esterase (NEGATIVE) Urine Microscopic RBC (0-2) /HPF Urine Microscopic WBC (0-5) /HPF Ur Epithelial Cells (FEW) /HPF Urine Bacteria (NEGATIVE) /HPF Urine Mucus (NEGATIVE) /HPF Urine Glucose (NEGATIVE) mg/dL Urine Opiates Level (NEGATIVE) Ur Methadone (NEGATIVE) Urine Barbiturates (NEGATIVE) Ur Phencyclidine (PCP) (NEGATIVE) Urine Amphetamine (NEGATIVE) U Benzodiazepine Level (NEGATIVE) Urine Cocaine (NEGATIVE) Urine Marijuana (THC) (NEGATIVE) Specimen Received ABO Group Rh Factor Antibody Screen (NEGATIVE) Discharge Exam General Appearance: no apparent distress, alert Skin Exam: normal color, warm, dry Eye Exam: PERRL, EOMI, eyes nml inspection Respiratory Exam: normal breath sounds, lungs clear, No respiratory distress Cardiovascular Exam: regular rate/rhythm, normal heart sounds Gastrointestinal/Abdomen Exam: soft, other (incision clean/dry/intact), No tenderness, No mass Extremity Exam: normal inspection, normal range of motion Final Diagnosis/Problem List - Final Discharge Diagnosis/Problem (1) delivery delivered Current Visit: Yes Status: Acute - Discharge Disposition: Home, Self-Care Condition: Stable Prescriptions: Continue Vits W-Ca,Fe,FA(<1Mg) [] 1 each PO DAILY Ranitidine HCl [Zantac] 150 mg PO BID #60 tablet Discontinued Nifedipine 10 mg [Procardia 10 mg] 10 mg PO Q4H #120 capsule Follow up with: SILVINA NEGRON MD [Primary Care Provider] - 1 Week
--- NOTE | 2017-11-03 08:24 | HP ---
HISTORY OF PRESENT ILLNESS: This patient is a 32 y/o female, 4, para 0, 1, 2, 1 at 34 weeks estimated gestational age. She has had a history of contractions during this . She has received Celestone injections X 2. She was seen in the office earlier today in follow-up from visit to [facility] Delivery Room last night. She had had contractions, but no cervical change. She was 2 cm dilated and in the office, heart tones were reassuring. The plan was for weekly nonstress tests, continue Procardia, and bedrest, but shortly after she was seen in the office, she had spontaneous rupture of membranes. She is having contractions every 2 minutes and per nursing, she is 2-3 cm dilated with 100% effacement and low station. Due to the rapid initiation of what appears to be active labor, I don't feel as though she is transfer at this time secondary to these issues. PAST MEDICAL HISTORY: Includes lumbar surgery with hardware placement. She had a previous in April 2011 with general anesthesia due to her back hardware. She also has a history of gastroesophageal reflux. CURRENT MEDICATIONS: Include a vitamin, Procardia 10 mg q 4 h, and ranitidine 150 mg bid. ALLERGIES: CECLOR, COCOA BUTTER, CODEINE, DARVOCET, ERYTHROMYCIN, FLEXERIL, PENICILLIN, AND RED DYE. Her estimated date of delivery is December 14, 2017. This is based off of LMP of 03/09/17. Her initial US on 04/25/17 was consistent with dates with the estimated due date of 12/18/17. I spoke with NICU staff at [facility] NICU due to her early gestational age. Remainder of systems reviewed on presentation are found to be negative. PHYSICAL EXAMINATION: Patient is screaming and wailing from contractions at the time of examination making history difficult. HEART: Regular. LUNGS: Clear. ABDOMEN: Gravid. heart rate is 140s, reactive strip. TOCO is every 2 minutes. STERILE VAGINAL EXAM: Deferred due to nursing checking her on arrival. ASSESSMENT: SPONTANEOUS RUPTURE OF MEMBRANES WITH ACTIVE LABOR WITH HISTORY OF PRIOR SECTION. At this time, we are going to proceed with repeat low transverse section with planned general anesthesia. Dr. Wagoner's NICU staff has been notified and is in route to assist with the baby at this time. I had a long discussion with the patient discussing the risk of prematurity with lung issues, etc. requiring NICU care and the fact that the baby will likely immediately be transferred to [facility] NICU. She is in agreement and agrees with my plan to go ahead and do the section hear due to the possible unsafe situation of transferring her at this time in active labor.
[2017-11-03 08:56] LABS: BAND 2 % (0.0-2.0); Lymphocytes 24 % (24-44); Monocyte 4 % (0.0-12.0); Neutrophils 70 % (36.0-66.0); Platelet Estimate NORMAL (NORMAL); Total Cells Counted 100
--- NOTE | 2017-11-03 09:11 | OP ---
SURGERY DATE: 11/02/17 SURGERY TIME: 1321 PREOPERATIVE DIAGNOSES: 1. LABOR. 2. SPONTANEOUS RUPTURE OF MEMBRANES. 3. HISTORY OF PRIOR SECTION. 4. HISTORY OF LOWER LUMBAR SPINE SURGERY. POSTOPERATIVE DIAGNOSES: 1. LABOR. 2. SPONTANEOUS RUPTURE OF MEMBRANES. 3. HISTORY OF PRIOR SECTION. 4. HISTORY OF LOWER LUMBAR SPINE SURGERY. PROCEDURE: 1. Emergency repeat low transverse section. SURGEON: Delano Jimenez M.D. ANESTHESIA: General by Som Lopez CRNA. ESTIMATED BLOOD LOSS: 300 cc. IV: 2 liters of crystalloid. URINE: 50 cc of clear, straw-colored urine. SPECIMEN: Placenta was sent for pathology. DESCRIPTION OF PROCEDURE: Briefly, this patient is a 32 y/o 4, para 1 who arrived at 34 weeks estimated gestational age by early US and LMP. She had spontaneous rupture of membranes and was felt to be in active labor and unsafe to be transferred due to active labor and concern for possible delivery during transfer. She is also a risk of uterine perforation with history of prior . Therefore, she consented to proceed with repeat low transverse . She required general anesthesia with her last due to history of lower lumbar surgery with hardware placement. She underwent general anesthesia after she was prepped and draped in the usual sterile fashion. Low transverse skin incision was made by knife and carried down through the subcutaneous fat to the level of the fascia. The fascia was nicked on each side of the midline and extended in a horizontal fashion using curved Coon scissors. The superior free edge of the fascia was grasped with Kenneth clamps and the underlying rectus muscles were dissected free. The same was repeated inferiorly. The peritoneal cavity was then bluntly opened and bladder blade was inserted. Bladder flap was created and reflected over the lower uterine segment. Horizontal uterine incision was made by knife and carried down to the level of the amniotic membranes which were carefully artificially ruptured. Viable infant was delivered from the vertex presentation with a strong cry immediately upon delivery. Cord was clamped and cut and the infant was handed off to the awaiting nursery team. Placenta was manually removed and the uterus exteriorized. The uterine cavity was sponge curetted clean with Lap sponge. Next, the uterine incision was closed with #1 chromic in a running, locked fashion. Good closure and good hemostasis were achieved. The posterior cul-de-sac was wiped free of blood and clot with a moist Lap sponge. The uterus was then returned to the peritoneal cavity and lateral gutters were wiped free of blood and clot. The incision on the uterus was inspected and noted to be hemostatic, good closure. Next, the fascia was closed with 0 Vicryl in a running fashion. Good closure and good hemostasis were achieved. Subcutaneous fat was irrigated with warm, sterile saline and any areas of oozing were cauterized with electrocautery. Finally, the skin layer was closed with 4-0, undyed Vicryl in running subcuticular fashion. Steri-Strips and occlusive dressing were placed over the incision and the patient was transferred to the recovery room in good condition.
[2017-11-03 09:55] VITALS: BP 128/74; PULSE 86
[2017-11-03] MEDS ORDERED: FERREX 150 PO SCH (10:00)
[2017-11-03] MEDS: Colace 100 MG PO SCH (10:15)
[2017-11-03] MEDS ORDERED: SUBLIMAZE 100 MCG/2 ML IV ONE (13:33)
== END 2017-11-03 11:20 | disposition home or self-care (01) | DRG 766 ==
LOC: OB 12:52
PROVIDERS: ADMIT Family Medicine; ATTEND Family Medicine
PROC: 10D00Z1 Extraction of Products of Conception, Low, Open Approach (ICD-10-PCS; principal; 2017-11-02)
DX: O42.013 Preterm premature rupture of membranes, onset of labor within 24 hours of rupture, third trimester (principal); Z37.0 Single live birth; Z3A.34 34 weeks gestation of pregnancy; Z98.890 Other specified postprocedural states
CPT/HCPCS: 36415; 64488; 76937; 76942; 80307; 81000; 81002; 85025; 85027; 85610; 85730; 86850; 86900; 86901; 87086; 88307; 90707; 90715; 96372; 99140; G0378; J0330; J1100; J2175; J2405; J2704; J2795; J3010; L0625; A9270-GY

== ENCOUNTER 2019-05-03 19:42 | Emergency (ER) | payer BC ==
[2019-05-03 19:58] VITALS: O2SAT 99
--- NOTE | 2019-05-03 20:08 | ERPHSYRPT ---
- History of Present Illness Time Seen by Provider: 05/03/19 19:50 Source: patient Exam Limitations: no limitations Patient Subjective Stated Complaint: pt states that she was changing her earring when the ball end went in her ear, states that he seen the ball in her ear and was afraid to get it out Triage Nursing Assessment: pt ambulated into the er, pt axo x4, pt vitals wnl, unable to foreign body in rt ear cannal Physician History: Right ear canal foreign body when changing an earring. The canal has the round bulb of the earring end. Timing/Duration: abrupt onset Severity: mild ENT Location: ear (R) Prearrival Treatment: no prearrival treatment Modifying Factors: Improves With: nothing Associated Symptoms: No ear pain (R), No ear pain (L), No cough, No fever, No dizziness, No drooling, No ear drainage, No facial pain/swelling, No headache, No motion sickness, No nasal congestion/drainage, No epistaxis, No nasal foreign body, No neck pain, No ringing of ears, No swollen glands, No sinus infection, No sore throat, No tooth pain, No difficulty swallowing Allergies/Adverse Reactions: cocoa butter Allergy (Verified 05/03/19 20:01) codeine [Codeine] Allergy (Verified 05/03/19 20:01) penicillin G Allergy (Verified 05/03/19 20:) red dye Allergy (Verified 05/03/19 20:) strawberry [Union] Allergy (Verified 05/03/19 20:01) strawberry flavoring cyclobenzaprine HCl [From Flexeril] Adverse Reaction (Severe, Verified 05/03/19 20:) acetaminophen [From Darvocet-N] Adverse Reaction (Verified 05/03/19 20:01) propoxyphene [From Darvocet-N] Adverse Reaction (Verified 05/03/19 20:01) Hx Tetanus, Diphtheria Vaccination/Date Given: Yes Hx Influenza Vaccination/Date Given: No Hx Pneumococcal Vaccination/Date Given: No - Review of Systems Constitutional: No Fever, No Chills Eyes: No Eye Pain, No Eye Redness Ears, Nose, & Throat: No Ear Pain, No Ear Discharge, No Hearing Changes, No Tinnitus, No Nose Discharge, No Epistaxis, No Mouth Pain, No Loose Teeth, No Throat Pain Respiratory: No Cough, No Dyspnea Cardiac: No Chest Pain, No Edema, No Syncope Abdominal/Gastrointestinal: No Abdominal Pain, No Nausea, No Vomiting, No Diarrhea Genitourinary Symptoms: No Flank Pain Musculoskeletal: No Back Pain, No Neck Pain Skin: No Rash Neurological: No Dizziness, No Focal Weakness, No Headache, No Parasthesia, No Sensory Changes, No Tremors Psychological: No Symptoms Endocrine: No Symptoms All Other Systems: Reviewed and Negative - Past Medical History Pertinent Past Medical History: Yes Neurological History: No Pertinent History ENT History: No Pertinent History Cardiac History: No Pertinent History Respiratory History: No Pertinent History Endocrine Medical History: No Pertinent History Musculoskeletal History: Other GI Medical History: No Pertinent History History: No Pertinent History Psycho-Social History: Depression Female Reproductive Disorders: No Pertinent History Other Medical History: LUMBAR SPINE, b12 defiency and anemia - Past Surgical History Past Surgical History: Yes Neuro Surgical History: No Pertinent History Cardiac: No Pertinent History Respiratory: No Pertinent History Gastrointestinal: Cholecystectomy Musculoskeletal: Orthopedic Surgery, Other Female Surgical History: Section Other Surgical History: Back Surgery, REMOVAL OF STAPH INFECTION ON BACK - Social History Smoking Status: Former smoker How long have you smoked: 5 Exposure to second hand smoke: No Drug Use: none Patient Lives Alone: No - Female History Hx Now: No - Nursing Vital Signs Nursing Vital Signs: Initial Vital Signs Temperature 98.2 F 05/03/19 19:50 Pulse Rate 79 05/03/19 19:50 Respiratory Rate 14 05/03/19 19:50 Blood Pressure 110/71 05/03/19 19:50 O2 Sat by Pulse Oximetry 99 05/03/19 19:50 Pain Scale Pain Intensity 0 - Physical Exam General Appearance: no apparent distress, alert Eye Exam: bilateral eye: normal inspection, PERRL, EOMI Ear Exam: right ear: foreign body (plastic clear round bulb), left ear: canal normal, bilateral ear: auricle normal, TM normal Nasal Exam: normal inspection, No active bleeding, No discharge, No dried blood Throat Exam: normal, pharynx normal, moist mucus membranes, No excessive drooling, No foreign body, No tonsillar exudate Neck Exam: normal inspection, non-tender, supple, full range of motion, trachea midline, No lymphadenopathy (R), No lymphadenopathy (L), No stiff neck Cardiovascular/Respiratory Exam: normal breath sounds, regular rate/rhythm, heart sounds normal, no respiratory distress Abdominal Exam: non-tender, soft Neurologic Exam: alert, oriented x 3, transfer pumper II-XII nml as tested, normal mood/ affect, sensation nml, No motor deficits Skin Exam: normal color, warm, dry SpO2 Interpretation: normal SpO2: 99 O2 Delivery: Room Air Procedures - Additional Procedures Progress: Foreign body irrigated out of the right ear without difficulty and without complication. - Course Nursing assessment & vital signs reviewed: Yes - Progress Progress: improved Progress Note: 05/03/19 20:07 Patient has no damage to the ear canal or tympanic membrane on the right side after brief irrigation of the foreign body. 05/03/19 20:17 Patient is hearing normally. Counseled pt/family regarding: diagnosis, need for follow-up - Departure Departure Disposition: Home Clinical Impression: Acute foreign body of right ear canal Qualifiers: Encounter type: initial encounter Qualified Code(s): T16.1XXA - Foreign body in right ear, initial encounter Condition: Good Critical Care Time: No Referrals: SILVINA NEGRON MD [Primary Care Provider] - 05/05/19 Instructions: Removing Objects Stuck in the Ear Additional Instructions: You had successful removal of the foreign body in the ear canal. Return as you need if any problems in the future.
[2019-05-03 20:24] VITALS: BP 104/74; PULSE 64
== END 2019-05-03 20:24 | disposition home or self-care (01) ==
LOC: ED 19:42
DX: T16.1XXA Foreign body in right ear, initial encounter (principal)
CPT/HCPCS: 99283

== ENCOUNTER 2020-10-09 18:03 | Emergency (ER) | payer OTHER ==
[2020-10-09 18:24] VITALS: PULSE 85; O2SAT 98
--- NOTE | 2020-10-09 18:58 | ERPHSYRPT ---
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 Patient hit it on concrete at [facility] Saturday 10/07. Triage Nursing Assessment: Patient present to ED with L wrist injury. States she hit it on concrete Saturday 10/07. Patient able to move fingers, cap refill normal, unable to move wrist toward self. Physician History: Patient is a 35-year-old female presents to our ED for evaluation of pain to her left wrist. Patient states she hit her left wrist on concrete 2 days ago. Patient states that she has been experiencing some pain since then. Patient declined pain medication. Patient states when she attempts to lift her 2-year-old child the pain gets worse. Overlying soft tissue intact. Pain is primarily at the dorsum aspect of the left proximal wrist. No pain in the anatomic snuffbox. No other injuries reported. Patient able to move all digits independently with minimal discomfort. Symptoms are mild in intensity. Movement reproduces symptomology. Pain improves with rest. Patient denies elbow shoulder neck injury. She voices no other complaints or concerns at this time. Occurred: days ago (2 days ago) Method of Injury: other Quality: constant Severity of Pain-Max: moderate Severity of Pain-Current: mild Extremities Pain Location: wrist: left Modifying Factors: Improves With: movement Associated Symptoms: none Allergies/Adverse Reactions: cocoa butter Allergy (Verified 10/09/20 18:24) codeine [Codeine] Allergy (Verified 10/09/20 18:24) penicillin G Allergy (Verified 10/09/20 18:24) red dye Allergy (Verified 10/09/20 18:24) strawberry [[place]] Allergy (Verified 10/09/20 18:24) strawberry flavoring cyclobenzaprine HCl [From Flexeril] Adverse Reaction (Severe, Verified 10/09/20 18:24) acetaminophen [From Darvocet-N] Adverse Reaction (Verified 10/09/20 18:24) propoxyphene [From Darvocet-N] Adverse Reaction (Verified 10/09/20 18:24) Hx Tetanus, Diphtheria Vaccination/Date Given: Yes Hx Influenza Vaccination/Date Given: No Hx Pneumococcal Vaccination/Date Given: No Travel Risk - International Travel Have you traveled outside of the country in past 3 weeks: No - Coronavirus Screening Are you exhibiting any of the following symptoms?: No Close contact with a COVID-19 positive Pt in past 14-21 Days: No - Vaccine Status Have you recieved a Covid-19 vaccination: No - Review of Systems Constitutional: No Symptoms, No Fever, No Chills Eyes: No Symptoms Ears, Nose, & Throat: No Symptoms Respiratory: No Symptoms, No Cough, No Dyspnea Cardiac: No Symptoms, No Chest Pain, No Edema, No Syncope Abdominal/Gastrointestinal: No Symptoms, No Abdominal Pain, No Nausea, No Vomiting, No Diarrhea Genitourinary Symptoms: No Symptoms, No Dysuria Musculoskeletal: No Symptoms, No Back Pain, No Neck Pain Skin: No Symptoms, No Rash Neurological: No Symptoms, No Dizziness, No Focal Weakness, No Sensory Changes Psychological: No Symptoms Endocrine: No Symptoms Hematologic/Lymphatic: No Symptoms Immunological/Allergic: No Symptoms All Other Systems: Reviewed and Negative - Past Medical History Pertinent Past Medical History: Yes Neurological History: No Pertinent History ENT History: No Pertinent History Cardiac History: No Pertinent History Respiratory History: No Pertinent History Endocrine Medical History: No Pertinent History Musculoskeletal History: Other GI Medical History: No Pertinent History History: No Pertinent History Psycho-Social History: Depression Female Reproductive Disorders: No Pertinent History Other Medical History: LUMBAR SPINE, b12 defiency and anemia - Past Surgical History Past Surgical History: Yes Neuro Surgical History: No Pertinent History Cardiac: No Pertinent History Respiratory: No Pertinent History Gastrointestinal: Cholecystectomy Musculoskeletal: Orthopedic Surgery, Other Female Surgical History: Section Other Surgical History: Back Surgery, REMOVAL OF STAPH INFECTION ON BACK - Social History Smoking Status: Former smoker How long have you smoked: 5 Exposure to second hand smoke: No Drug Use: none Patient Lives Alone: No - Female History Hx Last Menstrual Period: 09/25/20 Hx Now: No (trying to conceive) - Nursing Vital Signs Nursing Vital Signs: Initial Vital Signs Temperature 97.6 F 10/09/20 18:13 Pulse Rate 85 10/09/20 18:13 O2 Sat by Pulse Oximetry 98 10/09/20 18:13 Pain Scale Pain Intensity 3 - Physical Exam General Appearance: no apparent distress, alert Eyes, Ears, Nose, Throat Exam: moist mucous membranes Neck Exam: non-tender, supple Cardiovascular/Respiratory Exam: chest non-tender, normal breath sounds, regular rate/rhythm, no respiratory distress Abdominal Exam: non-tender, No guarding Back Exam: normal inspection, No vertebral tenderness Shoulder Exam: normal inspection, non-tender, no evidence of injury, normal ROM Elbow/Forearm Exam: normal inspection, non-tender, no evidence of injury, normal ROM Wrist Exam: normal inspection, bone tenderness, limited ROM (Range of motion limited due to pain. Extremities neurovascular intact distally. Compartments are soft. Cap refill less than 2 seconds. No abrasions or obvious swelling. ), No asymmetry, No ecchymosis Hand Exam: normal inspection, non-tender, no evidence of injury, normal ROM Neuro/Tendon Exam: normal sensation, normal motor functions Mental Status Exam: alert, oriented x 3, cooperative Skin Exam: normal color, warm, dry SpO2 Interpretation: normal SpO2: 98 O2 Delivery: Room Air - Course Nursing assessment & vital signs reviewed: Yes - Radiology Exams Wrist X-ray Interpretation: Interpreted by me (No fracture or dislocation. No soft tissue abnormalities observed.) Ordered Tests: Active Orders 24 hr Category Date Time Status WRIST (MIN 3 VIEWS) Stat Exams 10/09/20 18:26 Taken - Progress Progress: improved Progress Note: Patient reassessed. She declined pain medication. X-ray negative for fracture dislocation. We applied a wrist cock-up splint for comfort. Patient understands that if pain continues she will need repeat imaging studies in 7 days. She agrees to follow-up with her primary care doctor within 48 hours for reevaluation. Patient voices no other complaints or concerns at this time. 10/09/20 19:08 Counseled pt/family regarding: need for follow-up, rad results - Departure Departure Disposition: Home Clinical Impression: Wrist contusion Condition: Stable Critical Care Time: No Referrals: CHERI RAPHAEL, HUBERT [Primary Care Provider] - Additional Instructions: Discharge/Care Plan SEDRICK MCCALLUM was seen on 10/09/20 in the Emergency Room. The patient was counseled regarding Diagnosis,Lab results, Imaging studies, need for follow up and when to return to the Emergency Room. Prescriptions given: Discharge Note I have spoken with the patient and/or caregivers. I have explained the patient's condition, diagnosis and treatment plan based on the information available to me at this time. I have answered the patient's and/or caregiver's questions and addressed any concerns. The patient and/or caregivers have as good understanding of the patient's diagnosis, condition and treatment plan as can be expected at this point. The vital signs have been stable. The patient's condition is stable and appropriate for discharge from the emergency department. The patient will pursue further outpatient evaluation with the primary care physician or other designated or consulting physician as outlined in the discharge instructions. The patient and/or caregivers are agreeable to this plan of care and follow-up instructions have been explained in detail. The patient and/or caregivers have received these instruction. The patient/and or caregivers are aware that any significant change in condition or worsening of symptoms should prompt an immediate return to this or the closest emergency department or call 911. Outpatient Orders: Ortho Referral Time Frame: 1 Day, Facility: [facility]. Hosp, Location: [facility]
--- NOTE | 2020-10-10 08:42 | XRAY ---
Indication: Pain following trauma. Comparison: None 3 view left wrist obtained. No bony, articular, or soft tissue abnormalities.
== END 2020-10-09 19:04 | disposition home or self-care (01) ==
LOC: ED 18:03
DX: S60.212A Contusion of left wrist, initial encounter (principal); W22.09XA Striking against other stationary object, initial encounter; Y93.89 Activity, other specified; Y92.9 Unspecified place or not applicable; M25.532 Pain in left wrist
CPT/HCPCS: 73110; 99283; L3908

== ENCOUNTER 2022-06-19 16:48 | Emergency (ER) | payer BC, OTHER ==
[2022-06-19] MEDS ORDERED: TYLENOL 325 MG PO ONE (20:17)
[2022-06-19] MEDS ORDERED: Pepcid 20 MG VIAL IV ONE ×2 (20:17→20:29)
[2022-06-19] MEDS ORDERED: Sodium Chloride 0.9% 1000 ML 1,000 ML IV STA ×2 (20:17→23:37)
[2022-06-19] MEDS ORDERED: Zofran 4 MG/2 ML VIAL IV ONE (20:17)
[2022-06-19] MEDS ORDERED: PROTONIX 40 MG IV IV ONE ×2 (20:17→20:29)
--- NOTE | 2022-06-19 20:24 | ERPHSYRPT ---
- History of Present Illness Time Seen by Provider: 06/19/22 20:20 Historian: patient, family Exam Limitations: no limitations Patient Subjective Stated Complaint: intermittent sharp "electric" abd pains that typically last a couple weeks at a time. also has some diarrhea for a few days with these pains Triage Nursing Assessment: . Physician History: pt is having recurring episode of abd pain with diarrhea in month and had loose stools in between not really resolving. Independnet interview tih confirming hx. Abd soft and nontender without peritoneal signs or massess. Discussed risk/benefit of CT with pt and family and they agree not indicated at this time - prefer to avoid at this time. THey understand that there still could be pathology missed and evolving and are comfortable with this risk. has previously had GB out. Timing/Duration: day(s) Activities at Onset: none Quality: cramping Abdominal Pain Onset Location: epigastric Pain Radiation: no radiation Severity of Pain-Max: moderate Severity of Pain-Current: moderate Associated Symptoms: diarrhea Previous symptoms: same symptoms as today Allergies/Adverse Reactions: cocoa butter Allergy (Verified 06/19/22 19:50) codeine [Codeine] Allergy (Verified 06/19/22 19:50) penicillin G Allergy (Verified 06/19/22 19:50) red dye Allergy (Verified 06/19/22 19:50) strawberry [[place]] Allergy (Verified 06/19/22 19:50) strawberry flavoring cyclobenzaprine HCl [From Flexeril] Adverse Reaction (Severe, Verified 06/19/22 19:50) acetaminophen [From Darvocet-N] Adverse Reaction (Verified 06/19/22 19:50) propoxyphene [From Darvocet-N] Adverse Reaction (Verified 06/19/22 19:50) Home Medications: Omeprazole 40 mg PO DAILY PRN PRN 06/19/22 [History] Hx Tetanus, Diphtheria Vaccination/Date Given: Yes Hx Influenza Vaccination/Date Given: No Hx Pneumococcal Vaccination/Date Given: No Immunizations Up to Date: Yes Travel Risk - International Travel Have you traveled outside of the country in past 3 weeks: No - Coronavirus Screening Are you exhibiting any of the following symptoms?: No Close contact with a COVID-19 positive Pt in past 14-21 Days: No - Vaccine Status Have you recieved a Covid-19 vaccination: No - Review of Systems Constitutional: No Fever, No Chills Eyes: No Symptoms Ears, Nose, & Throat: No Symptoms Respiratory: No Cough, No Dyspnea Cardiac: No Chest Pain, No Edema, No Syncope Abdominal/Gastrointestinal: No Abdominal Pain, No Nausea, No Vomiting, No Diarrhea Genitourinary Symptoms: No Dysuria Musculoskeletal: No Back Pain, No Neck Pain Skin: No Rash Neurological: No Dizziness, No Focal Weakness, No Sensory Changes Psychological: No Symptoms Endocrine: No Symptoms All Other Systems: Reviewed and Negative - Past Medical History Pertinent Past Medical History: Yes Neurological History: No Pertinent History ENT History: No Pertinent History Cardiac History: No Pertinent History Respiratory History: No Pertinent History Endocrine Medical History: No Pertinent History Musculoskeletal History: Other GI Medical History: No Pertinent History History: No Pertinent History Psycho-Social History: No Pertinent History Female Reproductive Disorders: No Pertinent History Other Medical History: LUMBAR SPINE, b12 defiency and anemia - Past Surgical History Past Surgical History: Yes Neuro Surgical History: No Pertinent History Cardiac: No Pertinent History Respiratory: No Pertinent History Gastrointestinal: Cholecystectomy Genitourinary: No Pertinent History Musculoskeletal: Orthopedic Surgery, Other Female Surgical History: Dilation & Curettage, Section Other Surgical History: Back Surgery, REMOVAL OF STAPH INFECTION ON BACK - Social History Smoking Status: Former smoker How long have you smoked: 5 Exposure to second hand smoke: No Drug Use: none Patient Lives Alone: No - Female History Hx Last Menstrual Period: 2020 Hx Now: No - Nursing Vital Signs Nursing Vital Signs: Initial Vital Signs Temperature 98.6 F 06/19/22 19:38 Pulse Rate 80 06/19/22 19:38 Respiratory Rate 18 06/19/22 19:38 Blood Pressure 100/77 06/19/22 19:38 O2 Sat by Pulse Oximetry 100 06/19/22 19:38 Pain Scale Pain Intensity 3 - Physical Exam General Appearance: no apparent distress, alert Eye Exam: PERRL/EOMI, eyes nml inspection Ears, Nose, Throat Exam: normal ENT inspection, pharynx normal, moist mucous membranes Neck Exam: normal inspection, non-tender, supple, full range of motion Respiratory Exam: normal breath sounds, lungs clear, No respiratory distress Cardiovascular Exam: regular rate/rhythm, normal heart sounds Gastrointestinal/Abdomen Exam: soft, No tenderness, No distention, No mass, No guarding, No pulsatile mass, No rebound, No hernia Pelvic Exam: deferred Rectal Exam: deferred Back Exam: normal inspection, normal range of motion, No CVA tenderness, No vertebral tenderness Extremity Exam: normal inspection, normal range of motion, pelvis stable Neurologic Exam: alert, oriented x 3, cooperative, normal mood/affect, nml cerebellar function, sensation nml, No motor deficits Skin Exam: normal color, warm, dry SpO2 Interpretation: normal SpO2: 100 O2 Delivery: Room Air - Course Nursing assessment & vital signs reviewed: Yes Ordered Tests: Active Orders 24 hr Category Date Time Status IV Insertion STAT Care 06/19/22 20:17 Active AMYLASE Stat Lab 06/19/22 20:32 Completed CBC W DIFF Stat Lab 06/19/22 20:32 Completed CMP Stat Lab 06/19/22 20:32 Completed HCG QUALITATIVE,SERUM Stat Lab 06/19/22 20:32 Completed LIPASE Stat Lab 06/19/22 20:32 Completed Lactic Acid Stat Lab 06/19/22 21:00 Completed UA W/RFX UR CULTURE Stat Lab 06/19/22 20:22 Completed Medication Summary Discontinued Medications Generic Name Dose Route Start Last Admin Trade Name Gonzalezq PRN Reason Stop Dose Admin Acetaminophen 975 mg 06/19/22 20:17 06/19/22 20:40 Acetaminophen 325 Mg Tablet PO 06/19/22 20:18 975 mg STAT ONE Administration Acetaminophen Confirm 06/19/22 20:30 Acetaminophen 325 Mg Tablet Administered 06/19/22 20:31 Dose 975 mg .ROUTE .STK-MED ONE Azithromycin 250 mg 06/19/22 23:36 06/19/22 23:47 Azithromycin 250 Mg Tablet PO 06/19/22 23:37 250 mg STAT ONE Administration Azithromycin Confirm 06/19/22 23:46 Azithromycin 250 Mg Tablet Administered 06/19/22 23:47 Dose 250 mg .ROUTE .STK-MED ONE Famotidine 20 mg 06/19/22 20:17 06/19/22 20:44 Famotidine 20 Mg/1 Vial IV 06/19/22 20:18 20 mg STAT ONE Administration Famotidine Confirm 06/19/22 20:29 Famotidine 20 Mg/1 Vial Administered 06/19/22 20:30 Dose 20 mg IV .STK-MED ONE Sodium Chloride 1,000 mls @ 999 mls/hr 06/19/22 20:17 06/19/22 23:01 Sodium Chloride 0.9% 1000 Ml IV 06/19/22 21:17 Infused .Q1H1M STA Infusion Sodium Chloride Confirm 06/19/22 20:30 Sodium Chloride 0.9% 1000 Ml Administered 06/19/22 20:31 Dose 1,000 mls @ ud .ROUTE .STK-MED ONE Sodium Chloride Confirm 06/19/22 22:04 Sodium Chloride 0.9% 1000 Ml Administered 06/19/22 22:05 Dose 1,000 mls @ ud .ROUTE .STK-MED ONE Sodium Chloride 1,000 mls @ 999 mls/hr 06/19/22 23:37 06/19/22 23:47 Sodium Chloride 0.9% 1000 Ml IV 06/20/22 00:37 999 mls/hr .Q1H1M STA Administration Sodium Chloride Confirm 06/19/22 23:46 Sodium Chloride 0.9% 1000 Ml Administered 06/19/22 23:47 Dose 1,000 mls @ ud .ROUTE .STK-MED ONE Ondansetron HCl 4 mg 06/19/22 20:17 06/19/22 20:45 Ondansetron Hcl 4 Mg/2 Ml Vial IV 06/19/22 20:18 4 mg STAT ONE Administration Ondansetron HCl Confirm 06/19/22 20:29 Ondansetron Hcl 4 Mg/2 Ml Vial Administered 06/19/22 20:30 Dose 4 mg .ROUTE .STK-MED ONE Pantoprazole Sodium 40 mg 06/19/22 20:17 06/19/22 20:42 Pantoprazole 40 Mg Vial IV 06/19/22 20:18 40 mg STAT ONE Administration Pantoprazole Sodium Confirm 06/19/22 20:29 Pantoprazole 40 Mg Vial Administered 06/19/22 20:30 Dose 40 mg IV .STK-MED ONE Lab/Rad Data: Laboratory Result Diagrams 06/19/22 20:32 06/19/22 20:32 Laboratory Results 06/19/22 06/19/22 06/19/22 Range/Units 21:24 21:00 20:32 WBC (4.0-10.5) x10^3/uL RBC (4.1-5.4) x10^6/uL Hgb (12.0-16.0) g/dL Hct (35-47) % MCV (78-100) fL MCH (26-32) pg MCHC (32-36) g/dL RDW (11.5-14.0) % Plt Count (150-450) x10^3/uL MPV (7.5-11.0) fL Gran % (36.0-66.0) % Immature Gran % (Auto) (0.00-0.4) % Nucleat RBC Rel Count (0.00-0.1) % Eos # (Auto) (0-0.5) x10^3/uL Immature Gran # (Auto) (0.00-0.03) x10^3u/L Absolute Lymphs (auto) (1.0-4.6) x10^3/uL Absolute Monos (auto) (0.0-1.3) x10^3/uL Absolute Nucleated RBC (0.00-0.01) x10^3u/L Lymphocytes % (24.0-44.0) % Monocytes % (0.0-12.0) % Eosinophils % (0.00-5.0) % Basophils % (0.0-0.4) % Absolute Granulocytes (1.4-6.9) x10^3/uL Basophils # (0-0.4) x10^3/uL Sodium (137-145) mmol/L Potassium (3.5-5.1) mmol/L Chloride (98-107) mmol/L Carbon Dioxide (22-30) mmol/L Anion Gap (5-15) MEQ/L BUN (7-17) mg/dL Creatinine (0.52-1.04) mg/dL Estimated GFR ML/MIN Glucose (74-106) mg/dL Lactic Acid 0.9 (0.4-2.0) Calcium (8.4-10.2) mg/dL Total Bilirubin (0.2-1.3) mg/dL AST (14-36) U/L ALT (0-35) U/L Alkaline Phosphatase (38-126) U/L Serum Total Protein (6.3-8.2) g/dL Albumin (3.5-5.0) g/dL Amylase (30-110) U/L Lipase (23-300) U/L Serum , Qual NEGATIVE (Negative) Urine Color (Yellow) Urine Appearance (Clear) Urine pH (4.6-8.0) Ur Specific Jbphh (1.005-1.030) Urine Protein (Negative) Urine Glucose (UA) (Negative) mg/dL Urine Ketones (Negative) Urine Blood (Negative) Urine Nitrite (Negative) Urine Bilirubin (Negative) Urine Urobilinogen (0.2) mg/dL Ur Leukocyte Esterase (Negative) U Hyaline Cast (Auto) (0-2) /LPF Urine Microscopic RBC (0-5) /HPF Urine Microscopic WBC (0-5) /HPF Ur Epithelial Cells (None Seen) /HPF Urine Bacteria (None Seen) /HPF Urine Culture Reflexed (NO) Influenza Type A Ag NEGATIVE (NEGATIVE) Influenza Type B Ag NEGATIVE (NEGATIVE) RSV (PCR) NEGATIVE (Negative) SARS-CoV-2 (PCR) NEGATIVE (NEGATIVE) 06/19/22 06/19/22 06/19/22 Range/Units 20:32 20:32 20:22 WBC 10.2 (4.0-10.5) x10^3/uL RBC 5.09 (4.1-5.4) x10^6/uL Hgb 15.7 (12.0-16.0) g/dL Hct 46.7 (35-47) % MCV 91.7 (78-100) fL MCH 30.8 (26-32) pg MCHC 33.6 (32-36) g/dL RDW 12.9 (11.5-14.0) % Plt Count 309 (150-450) x10^3/uL MPV 9.6 (7.5-11.0) fL Gran % 61.4 (36.0-66.0) % Immature Gran % (Auto) 0.3 (0.00-0.4) % Nucleat RBC Rel Count 0.0 (0.00-0.1) % Eos # (Auto) 0.16 (0-0.5) x10^3/uL Immature Gran # (Auto) 0.03 (0.00-0.03) x10^3u/L Absolute Lymphs (auto) 2.98 (1.0-4.6) x10^3/uL Absolute Monos (auto) 0.75 (0.0-1.3) x10^3/uL Absolute Nucleated RBC 0.00 (0.00-0.01) x10^3u/L Lymphocytes % 29.2 (24.0-44.0) % Monocytes % 7.3 (0.0-12.0) % Eosinophils % 1.6 (0.00-5.0) % Basophils % 0.2 (0.0-0.4) % Absolute Granulocytes 6.27 (1.4-6.9) x10^3/uL Basophils # 0.02 (0-0.4) x10^3/uL Sodium 140 (137-145) mmol/L Potassium 3.6 (3.5-5.1) mmol/L Chloride 108 H (98-107) mmol/L Carbon Dioxide 24 (22-30) mmol/L Anion Gap 11.7 (5-15) MEQ/L BUN 9 (7-17) mg/dL Creatinine 0.81 (0.52-1.04) mg/dL Estimated GFR > 60.0 ML/MIN Glucose 88 (74-106) mg/dL Lactic Acid (0.4-2.0) Calcium 9.1 (8.4-10.2) mg/dL Total Bilirubin 0.50 (0.2-1.3) mg/dL AST 33 (14-36) U/L ALT 28 (0-35) U/L Alkaline Phosphatase 64 (38-126) U/L Serum Total Protein 8.0 (6.3-8.2) g/dL Albumin 4.7 (3.5-5.0) g/dL Amylase 59 (30-110) U/L Lipase 86 (23-300) U/L Serum , Qual (Negative) Urine Color Dark Yellow A (Yellow) Urine Appearance Clear (Clear) Urine pH 5.5 (4.6-8.0) Ur Specific Jbphh 1.015 (1.005-1.030) Urine Protein Negative (Negative) Urine Glucose (UA) Negative (Negative) mg/dL Urine Ketones Negative (Negative) Urine Blood Negative (Negative) Urine Nitrite Negative (Negative) Urine Bilirubin Negative (Negative) Urine Urobilinogen 0.2 (0.2) mg/dL Ur Leukocyte Esterase Negative (Negative) U Hyaline Cast (Auto) NONE SEEN (0-2) /LPF Urine Microscopic RBC 0-2 (0-5) /HPF Urine Microscopic WBC 0-2 (0-5) /HPF Ur Epithelial Cells None Seen (None Seen) /HPF Urine Bacteria None Seen (None Seen) /HPF Urine Culture Reflexed NO (NO) Influenza Type A Ag (NEGATIVE) Influenza Type B Ag (NEGATIVE) RSV (PCR) (Negative) SARS-CoV-2 (PCR) (NEGATIVE) - Progress Progress: improved, re-examined Progress Note: 06/20/22 00:46 pt symptoms have resolved with tx in ER and BPs are returned to normal after readjustment of the cuff. She and are advised of possibility of undtected evolving abdominal or other pathology and they are now comfortable with DC and after discussion wish to have antibiotics for the protracted episode of diarhea while they await culture results with PMD and will retrn meantime if not improving, vomiting, or other concerns. They have the capacity to make this choice. 06/20/22 00:50 they also wish to defer CT and avoid rad risk nichelle since symptoms have resolved. Counseled pt/family regarding: lab results, diagnosis, need for follow-up - Departure Departure Disposition: Home Clinical Impression: diarrhea, Abdominal pain of unknown cause Condition: Good Critical Care Time: No Referrals: CHERI RAPHAEL, HUBERT [Primary Care Provider] - Follow up/PCP as directed Instructions: Abdominal Pain, Adult ED Additional Instructions: stay with liquids until appetite back , avoid dairy until diarrhea stops,. Although infectious diarrhea seems the likely cause, there still could other conditions evolving undetected so see your dr or return if increased pain or vomiting or other concerns. TUrn in the speciment for culture to the lab. for your Dr to followup. Prescriptions: Azithromycin [Azithromycin 250 mg Pack] 250 mg PO UD #6 tablet
[2022-06-19] MEDS ORDERED: Zofran 4 MG/2 ML VIAL ONE (20:29)
[2022-06-19] MEDS ORDERED: Sodium Chloride 0.9% 1000 ML 1,000 ML ONE ×3 (20:30→23:46)
[2022-06-19] MEDS ORDERED: TYLENOL 325 MG ONE (20:30)
[2022-06-19 20:33] LABS: Absolute Neutrophil Ct (ANC) 6.27 x10^3/uL (1.4-6.9); BASOPHIL % 0.2 % (0.0-0.4); Basophil (Absolute #) 0.02 x10^3/uL (0-0.4); Eosinophil % 1.6 % (0.00-5.0); Eosinophil (Absolute #) 0.16 x10^3/uL (0-0.5); Hematocrit 46.7 % (35-47); Hemoglobin 15.7 g/dL (12.0-16.0); IMMATURE GRAN # 0.03 x10^3u/L (0.00-0.03); IMMATURE GRAN % 0.3 % (0.00-0.4); Lymphocyte (Absolute #) 2.98 x10^3/uL (1.0-4.6); Lymphocytes % 29.2 % (24.0-44.0); Mean Cell Volume 91.7 fL (78-100); Mean Corpuscular Hemoglobin 30.8 pg (26-32); Mean Corpuscular Hgb Concent. 33.6 g/dL (32-36); Mean Platelet Volume 9.6 fL (7.5-11.0); Monocyte (Absolute #) 0.75 x10^3/uL (0.0-1.3); Monocytes % 7.3 % (0.0-12.0); Neutrophil % 61.4 % (36.0-66.0); Platelet Count 309 x10^3/uL (150-450); Red Blood Count 5.09 x10^6/uL (4.1-5.4); Red Cell Distribution Width 12.9 % (11.5-14.0); White Blood Count 10.2 x10^3/uL (4.0-10.5)
[2022-06-19 20:37] LABS: Bacteria None Seen /HPF (None Seen); Bilirubin Negative (Negative); Blood Negative (Negative); Epithelial Cells None Seen /HPF (None Seen); Glucose, Urine Negative (Negative); Hyaline Casts NONE SEEN /LPF (0-2); Ketones Negative (Negative); Leukocyte Esterase Negative (Negative); Nitrite Negative (Negative); Ph 5.5 (4.6-8.0); Protein,Urine Dip Negative (Negative); RBC 0-2 /HPF (0-5); Specific Gravity 1.015 (1.005-1.030); Urobilinogen 0.2 mg/dL (0.2); WBC 0-2 /HPF (0-5)
[2022-06-19 20:38] LABS: ADD URINE CULTURE? NO (NO); Appearance Clear (Clear)
[2022-06-19 20:47] LABS: ALBUMIN 4.7 g/dL (3.5-5.0); ALKALINE PHOSPHATASE 64 U/L (38-126); AMYLASE 59 U/L (30-110); ANION GAP 11.7 MEQ/L (5-15); BLOOD UREA NITROGEN 9 mg/dL (7-17); CHLORIDE 108 mmol/L (98-107); Calcium 9.1 mg/dL (8.4-10.2); Carbon Dioxide 24 mmol/L (22-30); Creatinine 1 0.81 mg/dL (0.52-1.04); EST GLOMERULAR FILTRATION RATE > 60.0 ML/MIN; Glucose 88 mg/dL (74-106); LIPASE 86 U/L (23-300); Potassium 3.6 mmol/L (3.5-5.1); SGOT/AST 33 U/L (14-36); SGPT/ALT 28 U/L (0-35); SODIUM 140 mmol/L (137-145)
[2022-06-19 22:04] LABS: INFLUENZA A NEGATIVE (NEGATIVE); INFLUENZA B NEGATIVE (NEGATIVE); RESPIRATORY SYNCTIAL VIRUS NEGATIVE (Negative); SARS-CoV-2 Xpert Express NEGATIVE (NEGATIVE)
[2022-06-19] MEDS ORDERED: Zithromax 250 MG TABLET PO ONE (23:36)
[2022-06-19] MEDS ORDERED: Zithromax 250 MG TABLET ONE (23:46)
[2022-06-20 00:53] VITALS: O2SAT 100
[2022-06-20 01:29] VITALS: BP 110/65; PULSE 70
== END 2022-06-20 01:10 | disposition home or self-care (01) ==
LOC: ED 16:48
DX: R10.9 Unspecified abdominal pain (principal); R19.7 Diarrhea, unspecified; Z28.310 Unvaccinated for COVID-19
CPT/HCPCS: 0241U; 36000; 36415; 80053; 81001; 82150; 83605; 83690; 84703; 85025; 96360; 96374; 96375; 99284; 96361; J2405; A9270-GY

== ENCOUNTER 2022-10-23 22:31 | Emergency (ER) | payer BC, OTHER ==
--- NOTE | 2022-10-23 22:39 | ERPHSYRPT ---
- History of Present Illness Time Seen by Provider: 10/23/22 22:38 Source: patient Exam Limitations: no limitations Physician History: This is a morbidly obese 37-year-old white female who underwent a laparoscopic assisted abdominal hysterectomy on 09/24/2022 in [place]. She was released after 2 weeks postop to return to work. Patient has been working. She has not felt well in the last several days and today, while at work she started having increased abdominal pain in a generalized manner that is described as shooting sharp pains and associated nausea vomiting and diarrhea. She has no known exposure to individuals who have similar symptoms or been diagnosed with flus. She denies chest pain. She denies shortness of breath. She has not been on any antibiotics. Timing/Duration: day(s) (Last several days), worse (Symptoms are worse today) Severity: moderate Associated Symptoms: nausea, vomiting, abdominal pain, other, No shortness of breath (Diarrhea), No chest pain, No fever Allergies/Adverse Reactions: ketorolac [From Toradol] Allergy (Intermediate, Verified 10/23/22 22:51) Irregular Heart Beat cocoa butter Allergy (Verified 10/23/22 22:51) codeine [Codeine] Allergy (Verified 10/23/22 22:51) penicillin G Allergy (Verified 10/23/22 22:51) red dye Allergy (Verified 10/23/22 22:51) strawberry [Lott] Allergy (Verified 10/23/22 22:51) strawberry flavoring cyclobenzaprine HCl [From Flexeril] Adverse Reaction (Severe, Verified 10/23/22 22:51) acetaminophen [From Darvocet-N] Adverse Reaction (Verified 10/23/22 22:51) propoxyphene [From Darvocet-N] Adverse Reaction (Verified 10/23/22 22:51) Home Medications: Omeprazole 40 mg PO DAILY PRN PRN 06/19/22 [History] Hx Tetanus, Diphtheria Vaccination/Date Given: Yes Hx Influenza Vaccination/Date Given: No Hx Pneumococcal Vaccination/Date Given: No Travel Risk - International Travel Have you traveled outside of the country in past 3 weeks: No - Coronavirus Screening Are you exhibiting any of the following symptoms?: Yes Symptoms: Vomiting/Diarrhea Close contact with a COVID-19 positive Pt in past 14-21 Days: No - Vaccine Status Have you recieved a Covid-19 vaccination: No - Review of Systems Constitutional: No Symptoms Eyes: No Symptoms Ears, Nose, & Throat: No Symptoms Respiratory: No Symptoms Cardiac: No Symptoms Abdominal/Gastrointestinal: Abdominal Pain, Nausea, Vomiting, Diarrhea, Appetite Changes Genitourinary Symptoms: No Symptoms Musculoskeletal: No Symptoms Skin: No Symptoms Neurological: No Symptoms Psychological: No Symptoms Endocrine: No Symptoms Hematologic/Lymphatic: No Symptoms Immunological/Allergic: No Symptoms All Other Systems: Reviewed and Negative - Past Medical History Pertinent Past Medical History: Yes Neurological History: No Pertinent History ENT History: No Pertinent History Cardiac History: No Pertinent History Respiratory History: No Pertinent History Endocrine Medical History: No Pertinent History Musculoskeletal History: Other GI Medical History: No Pertinent History History: No Pertinent History Psycho-Social History: No Pertinent History Female Reproductive Disorders: No Pertinent History Other Medical History: LUMBAR SPINE, b12 defiency and anemia - Past Surgical History Past Surgical History: Yes Neuro Surgical History: No Pertinent History Cardiac: No Pertinent History Respiratory: No Pertinent History Gastrointestinal: Cholecystectomy Genitourinary: No Pertinent History Musculoskeletal: Orthopedic Surgery, Other Female Surgical History: Dilation & Curettage, Section Other Surgical History: Back Surgery, REMOVAL OF STAPH INFECTION ON BACK - Social History Smoking Status: Former smoker How long have you smoked: 5 Exposure to second hand smoke: No Drug Use: none Patient Lives Alone: No - Nursing Vital Signs Nursing Vital Signs: Initial Vital Signs Temperature 96.8 F 10/23/22 22:56 Pulse Rate 87 10/23/22 22:56 Respiratory Rate 20 10/23/22 22:56 Blood Pressure 112/94 10/23/22 22:56 O2 Sat by Pulse Oximetry 97 10/23/22 22:56 Pain Scale Pain Intensity 0 - Physical Exam General Appearance: no apparent distress, alert, anxiety, obese Eye Exam: PERRL/EOMI, eyes nml inspection Ears, Nose, Throat Exam: normal ENT inspection, dry mucous membranes Neck Exam: normal inspection, non-tender, supple, full range of motion Respiratory Exam: normal breath sounds, lungs clear, airway intact, No chest tenderness, No respiratory distress Cardiovascular Exam: regular rate/rhythm, normal heart sounds, normal peripheral pulses Gastrointestinal/Abdomen Exam: soft, normal bowel sounds, tenderness, guarding Pelvic Exam: not done Rectal Exam: not done Back Exam: normal inspection, normal range of motion, No CVA tenderness, No vertebral tenderness Extremity Exam: normal inspection, normal range of motion, pelvis stable Neurologic Exam: alert, oriented x 3, cooperative, lpta II-XII nml as tested, normal mood/affect, nml cerebellar function, nml station & gait, sensation nml Skin Exam: normal color, warm, dry Lymphatic Exam: adenopathy SpO2 Interpretation: normal O2 Delivery: Room Air - Course Nursing assessment & vital signs reviewed: Yes Ordered Tests: Active Orders 24 hr Category Date Time Status IV Insertion STAT Care 10/23/22 23:16 Active ABDOMEN AND PELVIS W/0 CONTRAS [CT] Stat Exams 10/23/22 23:17 Completed AMYLASE Stat Lab 10/23/22 23:28 Completed CBC W DIFF Stat Lab 10/23/22 23:28 Completed CMP Stat Lab 10/23/22 23:28 Completed LIPASE Stat Lab 10/23/22 23:28 Completed Lactic Acid Stat Lab 10/23/22 23:28 Completed MONO SCREEN Stat Lab 10/23/22 23:28 Completed UA W/RFX UR CULTURE Stat Lab 10/24/22 01:39 Completed Medication Summary Discontinued Medications Generic Name Dose Route Start Last Admin Trade Name Freq PRN Reason Stop Dose Admin Hydromorphone HCl 0.5 mg 10/23/22 23:16 10/23/22 23:34 Hydromorphone 1 Mg/1ml Inj IV 10/23/22 23:17 0.5 mg STAT ONE Administration Hydromorphone HCl Confirm 10/23/22 23:30 Hydromorphone 1 Mg/1ml Inj Administered 10/23/22 23:31 Dose 1 mg .ROUTE .STK-MED ONE Sodium Chloride 1,000 mls @ 999 mls/hr 10/23/22 23:16 10/24/22 00:51 Sodium Chloride 0.9% 1000 Ml IV 10/24/22 00:16 Infused .Q1H1M STA Infusion Sodium Chloride Confirm 10/23/22 23:30 Sodium Chloride 0.9% 1000 Ml Administered 10/23/22 23:31 Dose 1,000 mls @ ud .ROUTE .STK-MED ONE Sodium Chloride 1,000 mls @ 999 mls/hr 10/24/22 00:54 10/24/22 01:11 Sodium Chloride 0.9% 1000 Ml IV 10/24/22 01:54 999 mls/hr .Q1H1M STA Administration Sodium Chloride Confirm 10/24/22 01:09 Sodium Chloride 0.9% 1000 Ml Administered 10/24/22 01:10 Dose 1,000 mls @ ud .ROUTE .STK-MED ONE Ondansetron HCl 4 mg 10/23/22 23:16 10/23/22 23:34 Ondansetron Hcl 4 Mg/2 Ml Vial IV 10/23/22 23:17 4 mg STAT ONE Administration Ondansetron HCl Confirm 10/23/22 23:30 Ondansetron Hcl 4 Mg/2 Ml Vial Administered 10/23/22 23:31 Dose 4 mg .ROUTE .STK-MED ONE Potassium Chloride 20 meq 10/24/22 00:54 10/24/22 01:11 Potassium Chloride Tab 10 Meq Tab PO 10/24/22 00:55 20 meq STAT ONE Administration Potassium Chloride Confirm 10/24/22 01:09 Potassium Chloride Tab 10 Meq Tab Administered 10/24/22 01:10 Dose 20 meq PO .STK-MED ONE Lab/Rad Data: Laboratory Result Diagrams 10/23/22 23:28 10/23/22 23:28 Laboratory Results 10/24/22 10/23/22 10/23/22 Range/Units 01:39 23:30 23:28 WBC (4.0-10.5) x10^3/uL RBC (4.1-5.4) x10^6/uL Hgb (12.0-16.0) g/dL Hct (35-47) % MCV (78-100) fL MCH (26-32) pg MCHC (32-36) g/dL RDW (11.5-14.0) % Plt Count (150-450) x10^3/uL MPV (7.5-11.0) fL Gran % (36.0-66.0) % Immature Gran % (Auto) (0.00-0.4) % Nucleat RBC Rel Count (0.00-0.1) % Eos # (Auto) (0-0.5) x10^3/uL Immature Gran # (Auto) (0.00-0.03) x10^3u/L Absolute Lymphs (auto) (1.0-4.6) x10^3/uL Absolute Monos (auto) (0.0-1.3) x10^3/uL Absolute Nucleated RBC (0.00-0.01) x10^3u/L Lymphocytes % (24.0-44.0) % Monocytes % (0.0-12.0) % Eosinophils % (0.00-5.0) % Basophils % (0.0-0.4) % Absolute Granulocytes (1.4-6.9) x10^3/uL Basophils # (0-0.4) x10^3/uL Sodium (137-145) mmol/L Potassium (3.5-5.1) mmol/L Chloride (98-107) mmol/L Carbon Dioxide (22-30) mmol/L Anion Gap (5-15) MEQ/L BUN (7-17) mg/dL Creatinine (0.52-1.04) mg/dL Estimated GFR ML/MIN Glucose (74-106) mg/dL Lactic Acid (0.4-2.0) Calcium (8.4-10.2) mg/dL Total Bilirubin (0.2-1.3) mg/dL AST (14-36) U/L ALT (0-35) U/L Alkaline Phosphatase (38-126) U/L Serum Total Protein (6.3-8.2) g/dL Albumin (3.5-5.0) g/dL Amylase (30-110) U/L Lipase (23-300) U/L Urine Color Yellow (Yellow) Urine Appearance Clear (Clear) Urine pH 5.5 (4.6-8.0) Ur Specific [place] 1.015 (1.005-1.030) Urine Protein Negative (Negative) Urine Glucose (UA) Negative (Negative) mg/dL Urine Ketones Negative (Negative) Urine Blood Negative (Negative) Urine Nitrite Negative (Negative) Urine Bilirubin Negative (Negative) Urine Urobilinogen 0.2 (0.2) mg/dL Ur Leukocyte Esterase Negative (Negative) U Hyaline Cast (Auto) NONE SEEN (0-2) /LPF Urine Microscopic RBC 0-2 (0-5) /HPF Urine Microscopic WBC 0-2 (0-5) /HPF Ur Epithelial Cells None Seen (None Seen) /HPF Urine Bacteria None Seen (None Seen) /HPF Urine Culture Reflexed NO (NO) C. difficile Screen (NEGATIVE) C.difficile 027-NAP1-B1 (NEGATIVE) Monoscreen POSITIVE A (NEGATIVE) Influenza Type A Ag NEGATIVE (NEGATIVE) Influenza Type B Ag NEGATIVE (NEGATIVE) RSV (PCR) NEGATIVE (NEGATIVE) SARS-CoV-2 (PCR) NEGATIVE (NEGATIVE) 10/23/22 10/23/22 10/23/22 Range/Units 23:28 23:28 23:28 WBC 7.1 (4.0-10.5) x10^3/uL RBC 4.88 (4.1-5.4) x10^6/uL Hgb 14.7 (12.0-16.0) g/dL Hct 44.7 (35-47) % MCV 91.6 (78-100) fL MCH 30.1 (26-32) pg MCHC 32.9 (32-36) g/dL RDW 12.4 (11.5-14.0) % Plt Count 269 (150-450) x10^3/uL MPV 9.6 (7.5-11.0) fL Gran % 68.8 H (36.0-66.0) % Immature Gran % (Auto) 0.4 (0.00-0.4) % Nucleat RBC Rel Count 0.0 (0.00-0.1) % Eos # (Auto) 0.72 H (0-0.5) x10^3/uL Immature Gran # (Auto) 0.03 (0.00-0.03) x10^3u/L Absolute Lymphs (auto) 1.05 (1.0-4.6) x10^3/uL Absolute Monos (auto) 0.40 (0.0-1.3) x10^3/uL Absolute Nucleated RBC 0.00 (0.00-0.01) x10^3u/L Lymphocytes % 14.8 L (24.0-44.0) % Monocytes % 5.6 (0.0-12.0) % Eosinophils % 10.1 H (0.00-5.0) % Basophils % 0.3 (0.0-0.4) % Absolute Granulocytes 4.88 (1.4-6.9) x10^3/uL Basophils # 0.02 (0-0.4) x10^3/uL Sodium 139 (137-145) mmol/L Potassium 3.2 L (3.5-5.1) mmol/L Chloride 104 (98-107) mmol/L Carbon Dioxide 24 (22-30) mmol/L Anion Gap 14.4 (5-15) MEQ/L BUN 8 (7-17) mg/dL Creatinine 0.91 (0.52-1.04) mg/dL Estimated GFR > 60.0 ML/MIN Glucose 96 (74-106) mg/dL Lactic Acid 1.1 (0.4-2.0) Calcium 8.5 (8.4-10.2) mg/dL Total Bilirubin 0.70 (0.2-1.3) mg/dL AST 29 (14-36) U/L ALT 25 (0-35) U/L Alkaline Phosphatase 63 (38-126) U/L Serum Total Protein 7.6 (6.3-8.2) g/dL Albumin 4.3 (3.5-5.0) g/dL Amylase 56 (30-110) U/L Lipase 72 (23-300) U/L Urine Color (Yellow) Urine Appearance (Clear) Urine pH (4.6-8.0) Ur Specific [place] (1.005-1.030) Urine Protein (Negative) Urine Glucose (UA) (Negative) mg/dL Urine Ketones (Negative) Urine Blood (Negative) Urine Nitrite (Negative) Urine Bilirubin (Negative) Urine Urobilinogen (0.2) mg/dL Ur Leukocyte Esterase (Negative) U Hyaline Cast (Auto) (0-2) /LPF Urine Microscopic RBC (0-5) /HPF Urine Microscopic WBC (0-5) /HPF Ur Epithelial Cells (None Seen) /HPF Urine Bacteria (None Seen) /HPF Urine Culture Reflexed (NO) C. difficile Screen (NEGATIVE) C.difficile 027-NAP1-B1 (NEGATIVE) Monoscreen (NEGATIVE) Influenza Type A Ag (NEGATIVE) Influenza Type B Ag (NEGATIVE) RSV (PCR) (NEGATIVE) SARS-CoV-2 (PCR) (NEGATIVE) 10/23/22 Range/Units 23:25 WBC (4.0-10.5) x10^3/uL RBC (4.1-5.4) x10^6/uL Hgb (12.0-16.0) g/dL Hct (35-47) % MCV (78-100) fL MCH (26-32) pg MCHC (32-36) g/dL RDW (11.5-14.0) % Plt Count (150-450) x10^3/uL MPV (7.5-11.0) fL Gran % (36.0-66.0) % Immature Gran % (Auto) (0.00-0.4) % Nucleat RBC Rel Count (0.00-0.1) % Eos # (Auto) (0-0.5) x10^3/uL Immature Gran # (Auto) (0.00-0.03) x10^3u/L Absolute Lymphs (auto) (1.0-4.6) x10^3/uL Absolute Monos (auto) (0.0-1.3) x10^3/uL Absolute Nucleated RBC (0.00-0.01) x10^3u/L Lymphocytes % (24.0-44.0) % Monocytes % (0.0-12.0) % Eosinophils % (0.00-5.0) % Basophils % (0.0-0.4) % Absolute Granulocytes (1.4-6.9) x10^3/uL Basophils # (0-0.4) x10^3/uL Sodium (137-145) mmol/L Potassium (3.5-5.1) mmol/L Chloride (98-107) mmol/L Carbon Dioxide (22-30) mmol/L Anion Gap (5-15) MEQ/L BUN (7-17) mg/dL Creatinine (0.52-1.04) mg/dL Estimated GFR ML/MIN Glucose (74-106) mg/dL Lactic Acid (0.4-2.0) Calcium (8.4-10.2) mg/dL Total Bilirubin (0.2-1.3) mg/dL AST (14-36) U/L ALT (0-35) U/L Alkaline Phosphatase (38-126) U/L Serum Total Protein (6.3-8.2) g/dL Albumin (3.5-5.0) g/dL Amylase (30-110) U/L Lipase (23-300) U/L Urine Color (Yellow) Urine Appearance (Clear) Urine pH (4.6-8.0) Ur Specific [place] (1.005-1.030) Urine Protein (Negative) Urine Glucose (UA) (Negative) mg/dL Urine Ketones (Negative) Urine Blood (Negative) Urine Nitrite (Negative) Urine Bilirubin (Negative) Urine Urobilinogen (0.2) mg/dL Ur Leukocyte Esterase (Negative) U Hyaline Cast (Auto) (0-2) /LPF Urine Microscopic RBC (0-5) /HPF Urine Microscopic WBC (0-5) /HPF Ur Epithelial Cells (None Seen) /HPF Urine Bacteria (None Seen) /HPF Urine Culture Reflexed (NO) C. difficile Screen NEGATIVE (NEGATIVE) C.difficile 027-NAP1-B1 PRESUMPTIVE NEGATIVE (NEGATIVE) Monoscreen (NEGATIVE) Influenza Type A Ag (NEGATIVE) Influenza Type B Ag (NEGATIVE) RSV (PCR) (NEGATIVE) SARS-CoV-2 (PCR) (NEGATIVE) - Progress Progress: improved, re-examined Progress Note: 10/24/22 01:32 Patient reexamined. Patient no longer has abdominal pain or nausea. The CT scan of the abdomen pelvis without contrast was performed and interpreted by the radiologist. There is no evidence of any acute abdominopelvic abnormality. This patient's medical issue is of moderate complexity. The level of complexity and the work-up performed is based on review of the patient's past medical history, review of the patient's medication list, review of the patient's drug allergy list, history of present illness and physical findings on examination. The work-up performed today includes urinalysis, CBC, CMP, amylase, lipase, CT scan of the abdomen pelvis without contrast. I also ordered viral swabs including mono spot test. The patient received a intravenous line and infusion of normal saline solution 1 L, infusion of Zofran 4 mg intravenously, intravenous infusion of 1 mg of Dilaudid which the patient has had and tolerated in the past. I reviewed the work-up results. The patient is positive for mononucleosis. She also has a mildly low potassium level of 3.2 and I provided her with supplementation of 20 mEq potassium orally. We are awaiting the urinalysis. I provided her with a second liter of normal saline infusion. Patient states that she is feeling much improved. Counseled pt/family regarding: lab results, diagnosis, need for follow-up, rad results Medical Desision Making - Independent Historian Additional History obtained from: Spouse - Diagnostic Testing Diagnostic test were ordered, analyzed, and reviewed by me: Yes Radiological Interpretation: Reviewed by me, Teleradiologist Report - Risk of complications The pt has a mod risk of morbidity or mortality based on: Need for prescription drug management - Departure Departure Disposition: Home Clinical Impression: Mononucleosis, Hypokalemia, Vomiting and diarrhea Condition: Stable Critical Care Time: No Referrals: CHERI RAPHAEL FUELS SALES REPRESENTATIVE [Primary Care Provider] - Follow up/PCP as directed Additional Instructions: Drink plenty of clear liquids before advancing your diet. Use your antinausea medicine as prescribed. Prescriptions: Ondansetron ODT 4 MG [Zofran Odt 4 mg] 4 mg PO Q6H PRN PRN #10 tablet PRN Reason: Vomiting
[2022-10-23] MEDS ORDERED: Zofran 4 MG/2 ML VIAL IV ONE (23:16)
[2022-10-23] MEDS ORDERED: Sodium Chloride 0.9% 1000 ML 1,000 ML IV STA (23:16)
[2022-10-23] MEDS ORDERED: Hydromorphone 1 mg/ml Injection IV ONE (23:16)
[2022-10-23] MEDS ORDERED: Sodium Chloride 0.9% 1000 ML 1,000 ML ONE (23:30)
[2022-10-23] MEDS ORDERED: Zofran 4 MG/2 ML VIAL ONE (23:30)
[2022-10-23] MEDS ORDERED: Hydromorphone 1 mg/ml Injection ONE (23:30)
[2022-10-23 23:42] LABS: Absolute Neutrophil Ct (ANC) 4.88 x10^3/uL (1.4-6.9); BASOPHIL % 0.3 % (0.0-0.4); Basophil (Absolute #) 0.02 x10^3/uL (0-0.4); Eosinophil % 10.1 % (0.00-5.0); Eosinophil (Absolute #) 0.72 x10^3/uL (0-0.5); Hematocrit 44.7 % (35-47); Hemoglobin 14.7 g/dL (12.0-16.0); IMMATURE GRAN # 0.03 x10^3u/L (0.00-0.03); IMMATURE GRAN % 0.4 % (0.00-0.4); Lymphocyte (Absolute #) 1.05 x10^3/uL (1.0-4.6); Lymphocytes % 14.8 % (24.0-44.0); Mean Cell Volume 91.6 fL (78-100); Mean Corpuscular Hemoglobin 30.1 pg (26-32); Mean Corpuscular Hgb Concent. 32.9 g/dL (32-36); Mean Platelet Volume 9.6 fL (7.5-11.0); Monocytes % 5.6 % (0.0-12.0); Neutrophil % 68.8 % (36.0-66.0); Platelet Count 269 x10^3/uL (150-450); Red Blood Count 4.88 x10^6/uL (4.1-5.4); Red Cell Distribution Width 12.4 % (11.5-14.0); White Blood Count 7.1 x10^3/uL (4.0-10.5)
[2022-10-24 00:03] LABS: ALBUMIN 4.3 g/dL (3.5-5.0); ALKALINE PHOSPHATASE 63 U/L (38-126); AMYLASE 56 U/L (30-110); ANION GAP 14.4 MEQ/L (5-15); BLOOD UREA NITROGEN 8 mg/dL (7-17); CHLORIDE 104 mmol/L (98-107); Calcium 8.5 mg/dL (8.4-10.2); Carbon Dioxide 24 mmol/L (22-30); Creatinine 1 0.91 mg/dL (0.52-1.04); EST GLOMERULAR FILTRATION RATE > 60.0 ML/MIN; Glucose 96 mg/dL (74-106); LIPASE 72 U/L (23-300); Potassium 3.2 mmol/L (3.5-5.1); SGOT/AST 29 U/L (14-36); SGPT/ALT 25 U/L (0-35); SODIUM 139 mmol/L (137-145); Total Protein 7.6 g/dL (6.3-8.2)
[2022-10-24 00:23] LABS: INFLUENZA A NEGATIVE (NEGATIVE); INFLUENZA B NEGATIVE (NEGATIVE); RESPIRATORY SYNCTIAL VIRUS NEGATIVE (NEGATIVE); SARS-CoV-2 Xpert Express NEGATIVE (NEGATIVE)
[2022-10-24 00:32] LABS: 027 TOX PROD PRESUMPTIVE NEGATIVE (NEGATIVE); TOXIGENIC C. DIFF ORG NEGATIVE (NEGATIVE)
[2022-10-24] MEDS ORDERED: Sodium Chloride 0.9% 1000 ML 1,000 ML IV STA (00:54)
[2022-10-24] MEDS ORDERED: Klor Con PO ONE ×2 (00:54→01:09)
--- NOTE | 2022-10-24 00:55 | XRAY ---
CLINICAL HISTORY:Postop laparoscopic hyster; N/V/D COMPARISON:None; TECHNIQUES:Multiple axial CT sections of the abdomen and pelvis were acquired without intravenous contrast administration. Reconstructed coronal and sagittal images were also obtained; FINDINGS: Please note, lack of contrast limits the evaluation of organs, vascular structures, and lymph nodes. A 5 mm calcified nodule is seen in the right lower lobe, likely a granuloma. A calcified lymph node is noted at the right hilum. No pleural effusion or focal consolidation seen visualized both lung bases. The unenhanced liver, pancreas, spleen, and both adrenal glands are normal. The stomach and distal esophagus appear unremarkable. Patient is s/p cholecystectomy. Common bile duct appeared unremarkable measuring 7 mm. Normal size of both kidneys. No calculus, cyst, or hydronephrosis was seen on either side. Urinary bladder is suboptimally distended. Uterus is not visualized consistent with the history of surgery. The right ovary measures 30.4 x 25.9 mm and the left ovary measures 28.5 x 24 mm. No acute bowel obstruction or ileus. Mild scattered colonic stool volume. Appendix is normal. No intraperitoneal free fluid fluid collection is noted. No evidence of intraperitoneal air. The unenhanced vascular structures appear within normal CT limits. Multilevel lumbar spondylodegenerative changes. Patient is s/p posterior spinal fixation from L4-S1. Grade 2 anterolisthesis of L5 over S1 is noted with moderate degenerative changes. IMPRESSION: No acute abdominopelvic abnormality. Electronically Signed by: Maura Parra MD. (10/23/2022 23:52:00 DIRECTOR OF NURSES REGISTRY)
[2022-10-24] MEDS ORDERED: Sodium Chloride 0.9% 1000 ML 1,000 ML ONE (01:09)
[2022-10-24 02:02] LABS: Appearance Clear (Clear); Bacteria None Seen /HPF (None Seen); Bilirubin Negative (Negative); Blood Negative (Negative); Epithelial Cells None Seen /HPF (None Seen); Glucose, Urine Negative (Negative); Hyaline Casts NONE SEEN /LPF (0-2); Ketones Negative (Negative); Leukocyte Esterase Negative (Negative); Nitrite Negative (Negative); Ph 5.5 (4.6-8.0); Protein,Urine Dip Negative (Negative); RBC 0-2 /HPF (0-5); Specific Gravity 1.015 (1.005-1.030); Urobilinogen 0.2 mg/dL (0.2); WBC 0-2 /HPF (0-5)
[2022-10-24 02:42] LABS: ADD URINE CULTURE? NO (NO)
[2022-10-24 04:29] VITALS: BP 112/60; PULSE 72; O2SAT 97
== END 2022-10-24 04:47 | disposition home or self-care (01) ==
LOC: ED 22:31
DX: B27.90 Infectious mononucleosis, unspecified without complication (principal); E87.6 Hypokalemia; R11.2 Nausea with vomiting, unspecified; R19.7 Diarrhea, unspecified; R10.84 Generalized abdominal pain; Z28.310 Unvaccinated for COVID-19
CPT/HCPCS: 0241U; 36000; 36415; 74176; 80053; 81001; 82150; 83605; 83690; 85025; 86308; 87493; 96360; 96361; 96374; 96375; 99284; J1170; J2405; A9270-GY

== ENCOUNTER 2023-01-14 14:03 | Emergency (ER) | payer BC, OTHER ==
--- NOTE | 2023-01-14 14:24 | ERPHSYRPT ---
- History of Present Illness Time Seen by Provider: 01/14/23 14:24 Source: patient Exam Limitations: no limitations Physician History: This is a right-handed 37-year-old white female patient of nurse practitioner Kirsten who was letting her dog out and had the lesion in her right hand when the dog suddenly ran off pulling her right hand and her right hand and thumb hit the door frame. She has had some bruising and swelling present. She is here for x- ray to determine if there is a fracture/dislocation. Occurred: just prior to arrival Method of Injury: direct blow Quality: aching Severity of Pain-Max: mild Severity of Pain-Current: mild (Door frame) Extremities Pain Location: hand: right, thumb: right Modifying Factors: Improves With: movement Associated Symptoms: none Allergies/Adverse Reactions: ketorolac [From Toradol] Allergy (Intermediate, Verified 01/14/23 14:45) Irregular Heart Beat cocoa butter Allergy (Verified 01/14/23 14:45) codeine [Codeine] Allergy (Verified 01/14/23 14:45) penicillin G Allergy (Verified 01/14/23 14:45) red dye Allergy (Verified 01/14/23 14:45) strawberry [[place]] Allergy (Verified 01/14/23 14:45) strawberry flavoring cyclobenzaprine HCl [From Flexeril] Adverse Reaction (Severe, Verified 01/14/23 14:45) acetaminophen [From Darvocet-N] Adverse Reaction (Verified 01/14/23 14:45) propoxyphene [From Darvocet-N] Adverse Reaction (Verified 01/14/23 14:45) Home Medications: Omeprazole 40 mg PO DAILY PRN PRN 06/19/22 [History] Hx Tetanus, Diphtheria Vaccination/Date Given: Yes Hx Influenza Vaccination/Date Given: No Hx Pneumococcal Vaccination/Date Given: No Travel Risk - International Travel Have you traveled outside of the country in past 3 weeks: No - Coronavirus Screening Are you exhibiting any of the following symptoms?: No Close contact with a COVID-19 positive Pt in past 14-21 Days: No - Vaccine Status Have you recieved a Covid-19 vaccination: No - Review of Systems Constitutional: No Symptoms Eyes: No Symptoms Ears, Nose, & Throat: No Symptoms Respiratory: No Symptoms Cardiac: No Symptoms Abdominal/Gastrointestinal: No Symptoms Genitourinary Symptoms: No Symptoms Musculoskeletal: Injury (Right hand/thumb) Skin: No Symptoms Neurological: No Symptoms Psychological: No Symptoms Endocrine: No Symptoms Hematologic/Lymphatic: No Symptoms Immunological/Allergic: No Symptoms All Other Systems: Reviewed and Negative - Past Medical History Pertinent Past Medical History: Yes Neurological History: No Pertinent History ENT History: No Pertinent History Cardiac History: No Pertinent History Respiratory History: No Pertinent History Endocrine Medical History: No Pertinent History Musculoskeletal History: Other GI Medical History: No Pertinent History History: No Pertinent History Psycho-Social History: No Pertinent History Female Reproductive Disorders: No Pertinent History Other Medical History: LUMBAR SPINE, b12 defiency and anemia - Past Surgical History Past Surgical History: Yes Neuro Surgical History: No Pertinent History Cardiac: No Pertinent History Respiratory: No Pertinent History Gastrointestinal: Cholecystectomy Genitourinary: No Pertinent History Musculoskeletal: Orthopedic Surgery, Other Female Surgical History: Dilation & Curettage, Section Other Surgical History: Back Surgery, REMOVAL OF STAPH INFECTION ON BACK - Social History Smoking Status: Former smoker How long have you smoked: 5 Exposure to second hand smoke: No Drug Use: none Patient Lives Alone: No - Nursing Vital Signs Nursing Vital Signs: Initial Vital Signs Temperature 97.9 F 01/14/23 14:45 Pulse Rate 78 01/14/23 14:45 Respiratory Rate 18 01/14/23 14:45 Blood Pressure 126/75 01/14/23 14:45 O2 Sat by Pulse Oximetry 97 01/14/23 14:45 Pain Scale Pain Intensity 1 - Physical Exam General Appearance: no apparent distress, alert, anxiety Eyes, Ears, Nose, Throat Exam: normal ENT inspection, moist mucous membranes Neck Exam: normal inspection, non-tender, supple, full range of motion Cardiovascular/Respiratory Exam: chest non-tender, no respiratory distress Abdominal Exam: non-tender Back Exam: normal inspection, normal range of motion, No CVA tenderness, No vertebral tenderness Shoulder Exam: normal inspection, non-tender, no evidence of injury, normal ROM Elbow/Forearm Exam: normal inspection, non-tender, no evidence of injury, normal ROM Wrist Exam: normal inspection, non-tender, no evidence of injury, normal ROM Hand Exam: bone tenderness (Right hand), ecchymosis (Right hand), soft tissue tenderness (Right hand), swelling ( right hand right hand) Neuro/Tendon Exam: normal sensation, normal motor functions, normal tendon functions, responds to pain, no evidence tendon injury Mental Status Exam: alert, oriented x 3, cooperative Skin Exam: normal color, warm, dry SpO2 Interpretation: normal O2 Delivery: Room Air - Course Nursing assessment & vital signs reviewed: Yes Ordered Tests: Active Orders 24 hr Category Date Time Status HAND (MINIMUM 3 VIEWS) Stat Exams 01/14/23 14:43 Completed - Progress Progress: unchanged Progress Note: 01/14/23 16:05 This patient's medical issue is 1 of low complexity. Level complexity in the work-up performed is based on review of the patient's past medical history, re view of the patient's drug allergy list, review of the patient's medication list, history of present illness and physical findings on examination. This work-up includes x-ray of the right hand. The right hand x-ray was interpreted by the radiologist and I reviewed the results/impression. There is no evidence of any acute fracture or dislocation Counseled pt/family regarding: diagnosis, need for follow-up, rad results Medical Desision Making - Diagnostic Testing Diagnostic test were ordered, analyzed, and reviewed by me: Yes Radiological Interpretation: Reviewed by me, Teleradiologist Report - Risk of complications Minimal Risk: Minimal risk of morbidity - Departure Departure Disposition: Home Clinical Impression: Contusion of right hand Condition: Stable Critical Care Time: No Referrals: CHERI RAPHAEL NP [Primary Care Provider] - Follow up/PCP as directed Additional Instructions: Ice pack or ice bath right hand 3 times a day for the next 48 hours. If there are no contraindications, use Tylenol and ibuprofen for pain control. May follow-up in [facility] orthopedic clinic for further evaluation management. It is a walk-in clinic. You do not need to have an appointment. It is open Wednesday through Wednesday 8 AM to 10 AM.
[2023-01-14 14:50] VITALS: BP 126/75; PULSE 78; RESP 18; TEMP 97.9; O2SAT 97
--- NOTE | 2023-01-14 15:08 | XRAY ---
Indication: Right thumb pain following injury. Comparison: None 3 view right hand obtained with additional coned-down view of thumb. No bony, articular, or soft tissue abnormalities.
== END 2023-01-14 16:23 | disposition home or self-care (01) ==
LOC: ED 14:03
DX: S60.221A Contusion of right hand, initial encounter (principal); W22.8XXA Striking against or struck by other objects, initial encounter; Y93.K9 Activity, other involving animal care; Z28.310 Unvaccinated for COVID-19
CPT/HCPCS: 73130; 99282

== ENCOUNTER 2024-04-05 17:13 | Emergency (ER) | payer BC, OTHER ==
[2024-04-05 17:28] VITALS: TEMP 97.1; O2SAT 98
[2024-04-05] MEDS ORDERED: BENADRYL 50 MG/ML ONE (18:11)
[2024-04-05] MEDS ORDERED: Reglan 10 MG/2 ML ONE (18:11)
[2024-04-05] MEDS: Reglan 10 MG/2 ML IV ONE (18:15)
[2024-04-05] MEDS: BENADRYL 50 MG/ML IV ONE (18:15)
--- NOTE | 2024-04-05 18:47 | ERPHSYRPT ---
- History of Present Illness Time Seen by Provider: 04/05/24 17:45 Source: patient Exam Limitations: no limitations Patient Subjective Stated Complaint: Pt states "I have had a three day migraine and it is killing me." Triage Nursing Assessment: Pt presented alert and oriented X 3, skin pwd. PT ambulates with an upright steady gait, able to speak in clear full sentences. PT resting comfortably on the bed. Physician History: 38 years old female with history of migraines presented in the ER with 3 days history of frontal headache, moderate to severe sharp with associated minimal nausea but no vomiting. Pain is exacerbated with bright light and noise and better with being in quiet dark room. No neck pain or difficulty movements of neck. No fever or chills reported. Reports having similar headaches in the past but usually get better with taking Excedrin Migraine but it did not work when she had taken for last night. She has not taken any Excedrin today. No numbness tingling or focal weakness reported. No difficulty speech or visual disturbance. Patient has nonfocal neuroexam. No signs of meningismus. No mastoid tenderness. Lungs clear to auscultation. She is given Reglan Benadryl and a small dose of Inapsine as patient is allergic to Toradol, on reevaluation her headache is almost completely resolved and resting comfortably. I do not think patient needs imaging or any other workup and does not rate this is the worst headache of her life. Recommended outpatient follow-up with primary care and neurology for reevaluation. Discussed signs symptoms of worsening needing return to ER which she seems understanding. Allergies/Adverse Reactions: ketorolac [From Toradol] Allergy (Intermediate, Verified 01/14/23 14:45) Irregular Heart Beat cocoa butter Allergy (Verified 01/14/23 14:45) codeine [Codeine] Allergy (Verified 01/14/23 14:45) penicillin G Allergy (Verified 01/14/23 14:45) red dye Allergy (Verified 01/14/23 14:45) strawberry [[place]] Allergy (Verified 01/14/23 14:45) strawberry flavoring cyclobenzaprine HCl [From Flexeril] Adverse Reaction (Severe, Verified 01/14/23 14:45) acetaminophen [From Darvocet-N] Adverse Reaction (Verified 01/14/23 14:45) propoxyphene [From Darvocet-N] Adverse Reaction (Verified 01/14/23 14:45) Home Medications: Omeprazole 40 mg PO DAILY PRN PRN 06/19/22 [History] Escitalopram Oxalate [Lexapro] 20 mg PO DAILY 04/05/24 [History] Hx Tetanus, Diphtheria Vaccination/Date Given: Yes Hx Influenza Vaccination/Date Given: No Hx Pneumococcal Vaccination/Date Given: No Immunizations Up to Date: No Travel Risk - International Travel Have you traveled outside of the country in past 3 weeks: No - Emerging Infectious Disease Are you exhibiting symptoms associated with any current EIDs: No - Review of Systems Constitutional: No Symptoms Eyes: No Symptoms Ears, Nose, & Throat: No Symptoms Respiratory: No Symptoms Cardiac: No Symptoms Abdominal/Gastrointestinal: Nausea Genitourinary Symptoms: No Symptoms Skin: No Symptoms Neurological: Headache Psychological: No Symptoms Endocrine: No Symptoms Hematologic/Lymphatic: No Symptoms - Past Medical History Pertinent Past Medical History: Yes Neurological History: Migraines ENT History: No Pertinent History Cardiac History: No Pertinent History Respiratory History: No Pertinent History Endocrine Medical History: No Pertinent History Musculoskeletal History: Other GI Medical History: No Pertinent History History: No Pertinent History Psycho-Social History: No Pertinent History Female Reproductive Disorders: No Pertinent History Other Medical History: LUMBAR SPINE, b12 defiency and anemia - Past Surgical History Past Surgical History: Yes Neuro Surgical History: No Pertinent History Cardiac: No Pertinent History Respiratory: No Pertinent History Gastrointestinal: Cholecystectomy Genitourinary: No Pertinent History Musculoskeletal: Orthopedic Surgery, Other Female Surgical History: Dilation & Curettage, Section Other Surgical History: Back Surgery, REMOVAL OF STAPH INFECTION ON BACK - Female History Hx Last Menstrual Period: hysterectomy Hx Now: No - Social History Smoking Status: Former smoker How long have you smoked: 5 Exposure to second hand smoke: No Drug Use: none Patient Lives Alone: No - Social Determinants of Health Will the patient participate in the screening: Declined to provide - Nursing Vital Signs Nursing Vital Signs: Initial Vital Signs Temperature 97.1 F 04/05/24 17:23 Pulse Rate 76 04/05/24 17:23 Respiratory Rate 20 04/05/24 17:23 Blood Pressure 120/78 04/05/24 17:23 O2 Sat by Pulse Oximetry 98 04/05/24 17:23 Pain Scale Pain Intensity 4 - Physical Exam General Appearance: no apparent distress, alert Eye Exam: PERRL/EOMI Ears, Nose, Throat Exam: normal ENT inspection Neck Exam: normal inspection, supple, full range of motion Respiratory Exam: normal breath sounds, lungs clear Cardiovascular Exam: regular rate/rhythm, normal heart sounds Gastrointestinal/Abdominal Exam: soft, normal bowel sounds, No tenderness Extremity Exam: normal inspection, normal range of motion 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 Exam: normal hearing, normal speech, PERRL Coordination/Gait Exam: normal finger to nose, normal gait, normal cerebellar function, negative Romberg's sign Motor/Sensory Exam: no motor deficit, no sensory deficit, no pronator drift, negative Babinski's sign DTR Exam: bicep (R): 2+, bicep (L): 2+, knee (R): 2+, knee (L): 2+ Skin Exam: normal color SpO2 Interpretation: normal SpO2: 98 O2 Delivery: Room Air Ordered Tests: Active Orders 24 hr Category Date Time Status IV Insertion STAT Care 04/05/24 18:06 Active Medication Summary Discontinued Medications Generic Name Dose Route Start Last Admin Trade Name Miriam PRN Reason Stop Dose Admin Diphenhydramine HCl 50 mg 04/05/24 18:06 04/05/24 18:15 Diphenhydramine Hcl 50 Mg/Ml Vial IV 04/05/24 18:07 50 mg STAT ONE Administration Diphenhydramine HCl Confirm 04/05/24 18:11 Diphenhydramine Hcl 50 Mg/Ml Vial Administered 04/05/24 18:12 Dose 50 mg .ROUTE .STK-MED ONE Droperidol 0.625 mg 04/05/24 18:06 04/05/24 18:14 Droperidol 5 Mg/2 Ml Vial IV 04/05/24 18:07 0.625 mg STAT ONE Administration Droperidol Confirm 04/05/24 18:11 Droperidol 5 Mg/2 Ml Vial Administered 04/05/24 18:12 Dose 5 mg .ROUTE .STK-MED ONE Metoclopramide HCl 10 mg 04/05/24 18:06 04/05/24 18:15 Metoclopramide Hcl 10 Mg/2 Ml Vial IV 04/05/24 18:07 10 mg STAT ONE Administration Metoclopramide HCl Confirm 04/05/24 18:11 Metoclopramide Hcl 10 Mg/2 Ml Vial Administered 04/05/24 18:12 Dose 10 mg .ROUTE .STK-MED ONE - Progress Progress: improved Air Movement: good Progress Note: 04/05/24 18:56 38 years old female with history of migraines presented in the ER with 3 days history of frontal headache, moderate to severe sharp with associated minimal nausea but no vomiting. Pain is exacerbated with bright light and noise and better with being in quiet dark room. No neck pain or difficulty movements of neck. No fever or chills reported. Reports having similar headaches in the past but usually get better with taking Excedrin Migraine but it did not work when she had taken for last night. She has not taken any Excedrin today. No numbness tingling or focal weakness reported. No difficulty speech or visual disturbance. Patient has nonfocal neuroexam. No signs of meningismus. No mastoid te nderness. Lungs clear to auscultation. She is given Reglan Benadryl and a small dose of Inapsine as patient is allergic to Toradol, on reevaluation her headache is almost completely resolved and resting comfortably. I do not think patient needs imaging or any other workup and does not rate this is the worst headache of her life. Recommended outpatient follow-up with primary care and neurology for reevaluation. Discussed signs symptoms of worsening needing return to ER which she seems understanding. Blood Culture(s) Obtained: No Antibiotics given: No Counseled pt/family regarding: diagnosis, need for follow-up Medical Desision Making - Independent Historian Additional History obtained from: Spouse - Diagnostic Testing Diagnostic test were ordered, analyzed, and reviewed by me: No - Risk of complications The pt has a mod risk of morbidity or mortality based on: Need for prescription drug management - Departure Clinical Impression: Migraine Qualifiers: Migraine type: unspecified Status migrainosus presence: without status migrainosus Intractability: not intractable Qualified Code(s): G43.909 - Migraine, unspecified, not intractable, without status migrainosus Condition: Stable Critical Care Time: No Referrals: CHERI RAPHAEL NP [Primary Care Provider] - Follow up with PCP 1 day Instructions: Headache, Adult (DC) Additional Instructions: Take Tylenol/ibuprofen as needed. Follow-up with your primary care for reevaluation and may need referral for neurology to be placed on prophylactic medication for migraine. Return to ER for intractable headache, visual disturbance, numbness tingling or focal weakness etc.
[2024-04-05 19:17] VITALS: BP 118/65; PULSE 70; RESP 18
== END 2024-04-05 19:18 | disposition home or self-care (01) ==
LOC: ED 17:13
DX: G43.909 Migraine, unspecified, not intractable, without status migrainosus (principal)
CPT/HCPCS: 96374; 96375; 99283; J1200